=== PATIENT | male | born 1970 | race Caucasian/White ===

== ENCOUNTER → 2017-06-12 | Outpatient (CLI) | payer OTHER ==
[~2017-06-12] MED LIST: AMOX500 PO; BP PILL; Bactrim Ds Tab1 EACH PO; CEPH500 PO; CODGUAEL PO; Naprosyn500 MG PO; PENVK500 PO; Percocet 5-3251 EACH PO; SULTRIDS PO; WARF5
[2017-06-12 19:03] LABS: International Normalized Ratio 0.98; Prothrombin Time Results 10.2 Sec (9.7-11.5)
== END | disposition home or self-care (01) ==
LOC: LAB 15:55
PROVIDERS: Physician Assistant
DX: Z79.01 Long term (current) use of anticoagulants (principal); Z51.81 Encounter for therapeutic drug level monitoring
CPT/HCPCS: 85610

== ENCOUNTER 2019-02-05 15:02 | Emergency (ER) | payer OTHER ==
[~2019-02-05] VITALS: Ht 180.3 cm; Wt 108.9 kg
[2019-02-05] MEDS ORDERED: [UNRECOGNIZED DRUG - REMARK] (20:24)
[2019-02-05 20:48] LABS: BASOPHILS ABSOLUTE AUTO 0.03 K/mm3 (0.00-0.23); BASOPHILS PERCENT AUTO 1 % (0-2); EOSINOPHILS ABSOLUTE AUTO 0.09 K/mm3 (0.00-0.68); EOSINOPHILS PERCENT AUTO 2 % (0-6); Hematocrit 32.3 % (37.0-53.0); Hemoglobin 10.2 g/dL (13.5-17.5); IMMATURE GRAN ABSOLUTE AUTO 0.02 K/mm3 (0.00-0.10); IMMATURE GRAN PERCENT AUTO 0 % (0-1); LYMPHOCYTES ABSOLUTE AUTO 1.19 K/mm3 (0.84-5.20); LYMPHOCYTES PERCENT AUTO 20 % (21-46); MONOCYTES ABSOLUTE AUTO 0.42 K/mm3 (0.16-1.47); MONOCYTES PERCENT AUTO 7 % (4-13); Mean Corpuscular HGB 27.3 pg (26.0-34.0); Mean Corpuscular HGB Conc 31.6 g/dL (31.5-36.5); Mean Corpuscular Volume 86 fL (80-100); Mean Platelet Volume 9.1 fL (9.1-12.4); NEUTROPHILS ABSOLUTE AUTO 4.12 K/mm3 (1.96-9.15); NEUTROPHILS PERCENT AUTO 70 % (41-73); Platelet Count 291 K/mm3 (150-400); RDW Coefficient Variation 14.3 % (11.7-14.2); RDW Standard Deviation 44.8 fL (35.1-46.3); Red Blood Cell Count 3.74 M/mm3 (4.30-5.90); White Blood Cell Count 5.87 K/mm3 (4.00-11.30)
[2019-02-05 21:08] LABS: Alanine Aminotransfer (ALT/SGP 47 U/L (12-78); Albumin, Blood 3.1 g/dL (3.4-5.0); Albumin/Globulin Ratio 0.9 (0.8-1.8); Alk Phos 46 U/L (50-136); Anion Gap 5 mmol/L (6-16); Aspartate Aminotrans (AST/SGOT 23 U/L (12-37); Bilirubin, Total 0.6 mg/dL (0.1-1.0); Blood Urea Nitrogen 17 mg/dL (8-24); Bun/Creatinine Ratio 17.6 (12.0-20.0); CO2, Blood 28 mmol/L (21-32); Chloride, Blood 108 mmol/L (98-108); Creatinine, Blood 0.97 mg/dL (0.60-1.20); Globulin, Blood 3.4 g/dL (2.2-4.0); Glomerular Filtration Rate >60 (60-); Glucose, Blood 126 mg/dL (70-99); Potassium, Blood 4.3 mmol/L (3.5-5.5); Sodium, Blood 141 mmol/L (136-145); Total Protein, Blood 6.5 g/dL (6.4-8.2)
[2019-02-05] MEDS ORDERED: Lasix20 MG PO (22:31)
== END 2019-02-05 23:26 | disposition home or self-care (01) ==
LOC: ER 15:02
PROVIDERS: Physician Assistant
DX: I50.9 Heart failure, unspecified (principal); R74.8 Abnormal levels of other serum enzymes; R60.0 Localized edema
CPT/HCPCS: 71046; 80053; 83880; 85025; 93005; 93010; 96374; 99285-25; J1940

== ENCOUNTER → 2019-02-26 | Outpatient (CLI) | payer OTHER ==
[~2019-02-26] MED LIST changes: +Lasix20 MG PO; +[UNRECOGNIZED DRUG - REMARK]
[2019-02-26 16:49] LABS: International Normalized Ratio 0.94
== END | disposition home or self-care (01) ==
LOC: LAB 11:50 → LAB SHORT 11:50
PROVIDERS: Physician Assistant
DX: Z95.4 Presence of other heart-valve replacement (principal)
CPT/HCPCS: 85610

== ENCOUNTER 2019-05-15 16:18 | Inpatient (IN) | payer OTHER ==
[~2019-05-15] VITALS: Ht 180.3 cm; Wt 118.8 kg
[2019-05-15] MEDS ORDERED: WARF5 PO (16:57)
[2019-05-15 17:07] LABS: BASOPHILS ABSOLUTE AUTO 0.01 K/mm3 (0.00-0.23); BASOPHILS PERCENT AUTO 0 % (0-2); EOSINOPHILS PERCENT AUTO 0 % (0-6); Hematocrit 32.4 % (37.0-53.0); Hemoglobin 10.7 g/dL (13.5-17.5); IMMATURE GRAN ABSOLUTE AUTO 0.03 K/mm3 (0.00-0.10); IMMATURE GRAN PERCENT AUTO 0 % (0-1); LYMPHOCYTES ABSOLUTE AUTO 0.34 K/mm3 (0.84-5.20); LYMPHOCYTES PERCENT AUTO 3 % (21-46); MONOCYTES ABSOLUTE AUTO 0.42 K/mm3 (0.16-1.47); MONOCYTES PERCENT AUTO 4 % (4-13); Mean Corpuscular HGB 27.3 pg (26.0-34.0); Mean Corpuscular Volume 83 fL (80-100); Mean Platelet Volume 9.9 fL (9.1-12.4); NEUTROPHILS ABSOLUTE AUTO 9.13 K/mm3 (1.96-9.15); NEUTROPHILS PERCENT AUTO 92 % (41-73); Platelet Count 276 K/mm3 (150-400); RDW Coefficient Variation 14.7 % (11.7-14.2); RDW Standard Deviation 44.5 fL (35.1-46.3); Red Blood Cell Count 3.92 M/mm3 (4.30-5.90); White Blood Cell Count 9.93 K/mm3 (4.00-11.30)
[2019-05-15] MEDS ORDERED: Potassium Chlo20 ME1 PO (17:17)
[2019-05-15] MEDS ORDERED: ATORVASTATIN CA40 MG PO (17:17)
[2019-05-15] MEDS ORDERED: FUROSEMIDE40 MG PO (17:18)
[2019-05-15] MEDS ORDERED: FEROSUL325 M1 PO (17:19)
[2019-05-15 17:23] LABS: International Normalized Ratio 1.58; Prothrombin Time Results 16.5 Sec (9.7-11.5)
[2019-05-15 17:26] LABS: Alanine Aminotransfer (ALT/SGP 35 U/L (12-78); Anion Gap 4 mmol/L (6-16); Aspartate Aminotrans (AST/SGOT 23 U/L (12-37); Blood Urea Nitrogen 22 mg/dL (8-24); CO2, Blood 25 mmol/L (21-32); Calcium, Blood 8.5 mg/dL (8.5-10.1); Chloride, Blood 106 mmol/L (98-108); Glucose, Blood 92 mg/dL (70-99); Potassium, Blood 3.6 mmol/L (3.5-5.5); Sodium, Blood 135 mmol/L (136-145)
[2019-05-15 17:34] LABS: Albumin/Globulin Ratio 1.1 (0.8-1.8); Alk Phos 45 U/L (50-136); Bilirubin, Total 0.9 mg/dL (0.1-1.0); Bun/Creatinine Ratio 19.3 (12.0-20.0); Creatinine, Blood 1.14 mg/dL (0.60-1.20); Globulin, Blood 3.5 g/dL (2.2-4.0); Glomerular Filtration Rate >60 (60-); Total Protein, Blood 7.5 g/dL (6.4-8.2)
[2019-05-15 17:42] LABS: Influenza A Negative (NEGATIVE); Influenza B Negative (NEGATIVE)
--- NOTE | 2019-05-16 03:42 | NUR ---
PROVIDER CALLED REGARDING PUREE DIET. PT HAS NO ISSUES RELATED TO SWALLOWING OR ASPIRATION RISK. DR LEVY ADVISED TO HAVE DIET ASSESSED BY DAY PROVIDER AND CONTINUE PUREED DIET FOR NOW.
--- NOTE | 2019-05-16 04:03 | NUR ---
SHIFT SUMMARY PT ARRIVED TO UNIT BY BED ON ROOM AIR. ABX INFUSING AT TIME OF ARRIVAL. PT A/O X 4. PT ORIENTED TO ROOM. FAMILY AT BEDSIDE FOR FIRST PORTION OF SHIFT. PT PUT ON HIGH FLOW O2 BY RT D/T VEWS SCORE 5. PT RESPONDED WELL TO MEDICATION ADMINSTRATIONS. CHARGE NURSE NOTIFIED/CONSULTED REGARDING STATUS OF PT UPON ARRIVAL. PT STABLE FOR REMAINING PORTION OF SHIFT. ABLE TO DECREASE THE O2 NC TO 3 L AND MAINTAINS SATS IN MID 90S. PAIN MANAGED WITH PRN MEDICATIONS AND REPORTED RESOLVING BY PT. LN TO CONTINUE TO MONITOR.
[2019-05-16 05:07] LABS: Hematocrit 32.4 % (37.0-53.0); Hemoglobin 10.4 g/dL (13.5-17.5); Mean Corpuscular HGB 26.9 pg (26.0-34.0); Mean Corpuscular HGB Conc 32.1 g/dL (31.5-36.5); Mean Corpuscular Volume 84 fL (80-100); Mean Platelet Volume 9.9 fL (9.1-12.4); Platelet Count 240 K/mm3 (150-400); RDW Standard Deviation 45.4 fL (35.1-46.3); Red Blood Cell Count 3.86 M/mm3 (4.30-5.90); White Blood Cell Count 13.04 K/mm3 (4.00-11.30)
[2019-05-16 05:21] LABS: International Normalized Ratio 2.06
[2019-05-16 05:41] LABS: Prothrombin Time Results 21.2 Sec (9.7-11.5)
[2019-05-16 05:51] LABS: Anion Gap 7 mmol/L (6-16); Blood Urea Nitrogen 23 mg/dL (8-24); CO2, Blood 28 mmol/L (21-32); Calcium, Blood 7.8 mg/dL (8.5-10.1); Chloride, Blood 103 mmol/L (98-108); Creatinine, Blood 1.28 mg/dL (0.60-1.20); Glomerular Filtration Rate >60 (60-); Glucose, Blood 100 mg/dL (70-99); Magnesium, Blood 1.7 mg/dL (1.6-2.4); Potassium, Blood 3.6 mmol/L (3.5-5.5); Sodium, Blood 138 mmol/L (136-145)
[2019-05-16 05:54] LABS: BAND PERCENT MAN 21 % (0-8); BASOPHILS PERCENT MAN 0 % (0-2); EOSINOPHILS PERCENT MAN 0 % (0-6); LYMPHOCYTES ABSOLUTE MAN 1.04 K/mm3 (0.84-5.20); LYMPHOCYTES PERCENT MAN 8 % (21-46); METAMYELOCYTE ABSOLUTE MAN 0.13 K/mm3 (0.00-0.00); METAMYELOCYTE PERCENT MAN 1 % (0-0); MONOCYTES ABSOLUTE MAN 0.13 K/mm3 (0.16-1.47); MONOCYTES PERCENT MAN 1 % (4-13); NEUTROPHILS ABSOLUTE MAN 11.73 K/mm3 (1.96-9.15); SEG NEUTROPHILS PERCENT MAN 69 % (41-73); TOTAL CELLS COUNTED 100
--- NOTE | 2019-05-16 19:26 | NUR ---
SHIFT SUMMARY- PT ALERT AND ORIENTED INDEPENDENT IN THE ROOM. PT HAD A FULL SHOWER TODAY. PT AMBULATED WITH THE SPECIALIST MANAGERS IN THE HALLS TODAY WELL. PT HAS AN EXTENSIVE CARDIAC Hx. C/O RIGHT CHEST PAIN EARLIER IN THE SHIFT MEDICATED PER EMAR. PT IV SL WITH THE EXCEPTION OF IV ABX. SBP HAS REMAINED OVER 100 T/O THE DAY. PT STATES N/T IN BILATERAL FEET AT BASELINE. NO OTHER C/O PAIN. LUNG SOUNDS DIMINISHED T/O. PT REMOVED O2 AFTER GOING TO THE BATHROOM. AFTER 30 MINUTES ON ROOM AIR O2 SATS WERE 93% WITH A HR OF 91. PT STATED HE FEELS LIKE HE IS BREATHING BETTER. PASSED ON IN REPORT TO NIGHT CHIKA LAZARO.
[2019-05-17 05:00] LABS: BASOPHILS ABSOLUTE AUTO 0.01 K/mm3 (0.00-0.23); BASOPHILS PERCENT AUTO 0 % (0-2); EOSINOPHILS ABSOLUTE AUTO 0.05 K/mm3 (0.00-0.68); EOSINOPHILS PERCENT AUTO 1 % (0-6); Hematocrit 31.1 % (37.0-53.0); Hemoglobin 10.1 g/dL (13.5-17.5); IMMATURE GRAN ABSOLUTE AUTO 0.04 K/mm3 (0.00-0.10); IMMATURE GRAN PERCENT AUTO 0 % (0-1); LYMPHOCYTES ABSOLUTE AUTO 0.99 K/mm3 (0.84-5.20); LYMPHOCYTES PERCENT AUTO 9 % (21-46); MONOCYTES ABSOLUTE AUTO 0.45 K/mm3 (0.16-1.47); MONOCYTES PERCENT AUTO 4 % (4-13); Mean Corpuscular HGB Conc 32.5 g/dL (31.5-36.5); Mean Corpuscular Volume 83 fL (80-100); Mean Platelet Volume 10.1 fL (9.1-12.4); NEUTROPHILS ABSOLUTE AUTO 9.02 K/mm3 (1.96-9.15); NEUTROPHILS PERCENT AUTO 85 % (41-73); Platelet Count 237 K/mm3 (150-400); RDW Coefficient Variation 15.1 % (11.7-14.2); RDW Standard Deviation 45.7 fL (35.1-46.3); Red Blood Cell Count 3.74 M/mm3 (4.30-5.90); White Blood Cell Count 10.56 K/mm3 (4.00-11.30)
[2019-05-17 05:19] LABS: Anion Gap 4 mmol/L (6-16); Blood Urea Nitrogen 19 mg/dL (8-24); Bun/Creatinine Ratio 20.2 (12.0-20.0); CO2, Blood 27 mmol/L (21-32); Calcium, Blood 8.4 mg/dL (8.5-10.1); Chloride, Blood 109 mmol/L (98-108); Creatinine, Blood 0.94 mg/dL (0.60-1.20); Glomerular Filtration Rate >60 (60-); Glucose, Blood 97 mg/dL (70-99); Potassium, Blood 3.6 mmol/L (3.5-5.5); Sodium, Blood 140 mmol/L (136-145)
[2019-05-17 05:21] LABS: International Normalized Ratio 1.7; Prothrombin Time Results 17.7 Sec (9.7-11.5)
--- NOTE | 2019-05-17 07:32 | NUR ---
SHIFT SUMMARY PATIENT ALERT AND ORIENTED. ABLE TO SLEEP WELL MOST OF THE NIGHT. IV PATENT AND FLUSHED. BED IN LOWEST POSITION WITH WHEELS LOCKED. CALL LIGHT AND BELONGINGS WITHIN REACH. REPORT GIVEN TO ONCOMING CHIKA.
--- NOTE | 2019-05-17 17:40 | NUR ---
PT SBP HAS BEEN RUNNING LOW, CALLED DR MACKEY TO CONFIRM NEW ORDER FOR METOPROLOL AND LISINOPRIL. PT HAS AN ARTIFICIAL HEART VALVE AND Hx OF ANURISIM REPAIR WELL OTHER CARDIAC Hx. ORDER RECIEVED TO HOLD FOR SBP LESS THAN 90.
--- NOTE | 2019-05-17 19:50 | NUR ---
SHIFT SUMMARY- PT HAS HAD NO ACUTE CHANGE T/O THE SHIFT. PT MEDICATED FOR PAIN ONCE WITH TYLENOL FOR A HEADACHE. PT IS ALERT, ORIENTED AND INDEPENDENT IN THE ROOM. PT SWEATS PROFUSELY (AT BASELINE PER PT) WHEN HE SLEEPS, THIS REQUIRES STAFF TO CHANGE THE LINNENS BUT IT ALSO CAUSES HIS IV TAPE TO NO LONGER STICK. PT HAS A LOT OF HAIR ON HIS ARM AND PLAN WAS TO TRIM THE HAIR AROUND THE IV SITE AND TRY TO USE SKIN PREP TO AID IN ADHEREING THE WINDOW IV DRESSING. PT PLANS TO DISCHARGE HOME TOMORROW AND WOULD LIKE TO NOT HAVE TO CHANGE IV SITES. IV FLUSHES WELL AND IS SL. PASSED ON TO NIGHT RN IN BEDSIDE REPORT.
--- NOTE | 2019-05-18 05:14 | NUR ---
SHIFT SUMMARY PT SLEPT A FAIR AMOUNT THIS EVENING, CONSIDERING THAT PT REPORTED THAT HE HAD SLEPT MOST OF THE DAY WELL. WAS AWAKE FOR PERIODS THROUGHOUT THE NIGHT BUT SLEPT WELL OFF AND ON. PT REPORTED SOME PAIN IN BILATERAL HANDS R/T HX OF CARPAL TUNNEL. MEDICATED X 1 W/ 650 MG TYLENOL. DRY OCCASSIONAL NON PRODUCTIVE COUGH NOTED. PT REMAINED ON RA W/ O2 SATS IN THE MID 90'S. VITAL SIGNS STABLE. NO ACUTE EVENTS TONIGHT. WILL CONTINUE TO MONITOR AND REPORT TO DAY RN.
[2019-05-18 05:15] LABS: BASOPHILS ABSOLUTE AUTO 0.02 K/mm3 (0.00-0.23); BASOPHILS PERCENT AUTO 0 % (0-2); EOSINOPHILS ABSOLUTE AUTO 0.04 K/mm3 (0.00-0.68); EOSINOPHILS PERCENT AUTO 0 % (0-6); Hematocrit 31.7 % (37.0-53.0); IMMATURE GRAN ABSOLUTE AUTO 0.05 K/mm3 (0.00-0.10); IMMATURE GRAN PERCENT AUTO 1 % (0-1); LYMPHOCYTES ABSOLUTE AUTO 1.24 K/mm3 (0.84-5.20); LYMPHOCYTES PERCENT AUTO 14 % (21-46); MONOCYTES ABSOLUTE AUTO 0.42 K/mm3 (0.16-1.47); MONOCYTES PERCENT AUTO 5 % (4-13); Mean Corpuscular HGB 26.7 pg (26.0-34.0); Mean Corpuscular HGB Conc 31.5 g/dL (31.5-36.5); Mean Corpuscular Volume 85 fL (80-100); Mean Platelet Volume 10.3 fL (9.1-12.4); NEUTROPHILS PERCENT AUTO 81 % (41-73); Platelet Count 262 K/mm3 (150-400); RDW Coefficient Variation 14.9 % (11.7-14.2); RDW Standard Deviation 45.9 fL (35.1-46.3); Red Blood Cell Count 3.75 M/mm3 (4.30-5.90); White Blood Cell Count 9.07 K/mm3 (4.00-11.30)
[2019-05-18 05:28] LABS: International Normalized Ratio 1.65; Prothrombin Time Results 17.2 Sec (9.7-11.5)
[2019-05-18 05:49] LABS: Anion Gap 6 mmol/L (6-16); Blood Urea Nitrogen 16 mg/dL (8-24); Bun/Creatinine Ratio 17.6 (12.0-20.0); CO2, Blood 26 mmol/L (21-32); Calcium, Blood 8.4 mg/dL (8.5-10.1); Chloride, Blood 109 mmol/L (98-108); Creatinine, Blood 0.91 mg/dL (0.60-1.20); Glomerular Filtration Rate >60 (60-); Glucose, Blood 93 mg/dL (70-99); Potassium, Blood 3.9 mmol/L (3.5-5.5); Sodium, Blood 141 mmol/L (136-145)
[2019-05-18] MEDS ORDERED: Lisinopril2.5 MG PO (10:44)
[2019-05-18] MEDS ORDERED: ACET325 PO (10:44)
[2019-05-18] MEDS ORDERED: Augmentin 875-1 EACH PO (10:45)
[2019-05-18] MEDS ORDERED: METO25ER PO (10:45)
--- NOTE | 2019-05-18 14:17 | NUR ---
PT DC'D 1100 WITH DC INSTRUCTIONS- WILL [facility] CODER RX FROM [facility] BEFORE 100 TODAY. IV DC'D. PT AMBULATED OUT WITH MOM AT SIDE, PT DECLINED WHEEL CHAIR. IS STRONG AND ABLE TO AMBULATE, NO SOB. PRIVATE CAR TO HOME
== END 2019-05-18 11:06 | disposition home or self-care (01) | DRG 871 ==
LOC: ER 16:18 → MEDS 18:25
PROVIDERS: Emergency Medicine; Internal Medicine; Physician Assistant; ADMIT Hospitalist
DX: A40.3 Sepsis due to Streptococcus pneumoniae (principal); J13 Pneumonia due to Streptococcus pneumoniae; R04.2 Hemoptysis; I50.22 Chronic systolic (congestive) heart failure; Z95.2 Presence of prosthetic heart valve; D64.9 Anemia, unspecified; Z79.01 Long term (current) use of anticoagulants
CPT/HCPCS: 36415; 71046; 80048; 80053; 83605; 83735; 83880; 85025; 85610; 87040; 87070; 87186; 87205; 87804; 93005; 93010; 93306; 94760; 96365; 96366; 96375; 99285-25; A9270; A9270-GY; J0456; J0696; J1650; J1940; J7050; J7512

== ENCOUNTER 2020-06-01 21:30 | Inpatient (IN) | payer OTHER ==
[~2020-06-01] VITALS: Ht 180.3 cm; Wt 128.2 kg
[~2020-06-01 21:30] MED LIST changes: +ACET325 PO; +ATORVASTATIN CA40 MG PO; +Augmentin 875-1 EACH PO; +CARV3.125 PO; +DOK100 MG PO; +ENOX120I SC; +FEROSUL325 M1 PO; +FUROSEMIDE40 MG PO; +LANOXIN125 MCG PO; +Lisinopril2.5 MG PO; +METO25ER PO; +PERIDEX15 ML MM; +POTCHL20ER PO; +Penicillin V P500 MG PO; +Potassium Chlo20 ME1 PO; +SENN187 PO; +WARF5 PO
[2020-06-01 22:07] LABS: BASOPHILS ABSOLUTE AUTO 0.01 K/mm3 (0.00-0.23); BASOPHILS PERCENT AUTO 0 % (0-2); EOSINOPHILS ABSOLUTE AUTO 0.08 K/mm3 (0.00-0.68); EOSINOPHILS PERCENT AUTO 2 % (0-6); Hematocrit 38.1 % (37.0-53.0); Hemoglobin 12.3 g/dL (13.5-17.5); IMMATURE GRAN ABSOLUTE AUTO 0.03 K/mm3 (0.00-0.10); IMMATURE GRAN PERCENT AUTO 1 % (0-1); LYMPHOCYTES ABSOLUTE AUTO 1.02 K/mm3 (0.84-5.20); LYMPHOCYTES PERCENT AUTO 20 % (21-46); MONOCYTES ABSOLUTE AUTO 0.48 K/mm3 (0.16-1.47); MONOCYTES PERCENT AUTO 9 % (4-13); Mean Corpuscular HGB 29.5 pg (26.0-34.0); Mean Corpuscular HGB Conc 32.3 g/dL (31.5-36.5); Mean Corpuscular Volume 91 fL (80-100); Mean Platelet Volume 9.6 fL (9.1-12.4); NEUTROPHILS ABSOLUTE AUTO 3.61 K/mm3 (1.96-9.15); NEUTROPHILS PERCENT AUTO 69 % (41-73); Platelet Count 242 K/mm3 (150-400); RDW Coefficient Variation 15.5 % (11.7-14.2); RDW Standard Deviation 51.8 fL (35.1-46.3); Red Blood Cell Count 4.17 M/mm3 (4.30-5.90); White Blood Cell Count 5.23 K/mm3 (4.00-11.30)
[2020-06-01 22:28] LABS: Alanine Aminotransfer (ALT/SGP 64 U/L (12-78); Albumin, Blood 3.4 g/dL (3.4-5.0); Alk Phos 47 U/L (50-136); Anion Gap 3 mmol/L (6-16); Aspartate Aminotrans (AST/SGOT 31 U/L (12-37); Bilirubin, Total 0.4 mg/dL (0.1-1.0); Blood Urea Nitrogen 29 mg/dL (8-24); Bun/Creatinine Ratio 30.1 (12.0-20.0); CO2, Blood 31 mmol/L (21-32); Calcium, Blood 8.9 mg/dL (8.5-10.1); Chloride, Blood 108 mmol/L (98-108); Creatinine, Blood 0.96 mg/dL (0.60-1.20); Globulin, Blood 3.4 g/dL (2.2-4.0); Glomerular Filtration Rate >60 (60-); Glucose, Blood 99 mg/dL (70-99); Potassium, Blood 4.6 mmol/L (3.5-5.5); Sodium, Blood 142 mmol/L (136-145); Total Protein, Blood 6.8 g/dL (6.4-8.2)
[2020-06-01 23:11] LABS: Prothrombin Time Results 30.2 Sec (9.7-11.5)
[2020-06-01 23:21] LABS: Digoxin (Lanoxin) 0.35 ug/mL (0.80-2.00)
[2020-06-02 08:09] LABS: BASOPHILS ABSOLUTE AUTO 0.02 K/mm3 (0.00-0.23); BASOPHILS PERCENT AUTO 0 % (0-2); EOSINOPHILS ABSOLUTE AUTO 0.08 K/mm3 (0.00-0.68); EOSINOPHILS PERCENT AUTO 2 % (0-6); Hematocrit 37.5 % (37.0-53.0); Hemoglobin 12.1 g/dL (13.5-17.5); IMMATURE GRAN ABSOLUTE AUTO 0.03 K/mm3 (0.00-0.10); IMMATURE GRAN PERCENT AUTO 1 % (0-1); LYMPHOCYTES ABSOLUTE AUTO 0.81 K/mm3 (0.84-5.20); LYMPHOCYTES PERCENT AUTO 16 % (21-46); MONOCYTES ABSOLUTE AUTO 0.47 K/mm3 (0.16-1.47); MONOCYTES PERCENT AUTO 9 % (4-13); Mean Corpuscular HGB 29.4 pg (26.0-34.0); Mean Corpuscular HGB Conc 32.3 g/dL (31.5-36.5); Mean Corpuscular Volume 91 fL (80-100); Mean Platelet Volume 9.8 fL (9.1-12.4); NEUTROPHILS PERCENT AUTO 73 % (41-73); Platelet Count 253 K/mm3 (150-400); RDW Coefficient Variation 15.5 % (11.7-14.2); RDW Standard Deviation 51.5 fL (35.1-46.3); Red Blood Cell Count 4.12 M/mm3 (4.30-5.90); White Blood Cell Count 5.21 K/mm3 (4.00-11.30)
[2020-06-02 08:22] LABS: International Normalized Ratio 2.99; Prothrombin Time Results 30.1 Sec (9.7-11.5)
[2020-06-02 08:28] LABS: Alanine Aminotransfer (ALT/SGP 60 U/L (12-78); Albumin, Blood 3.3 g/dL (3.4-5.0); Alk Phos 43 U/L (50-136); Anion Gap 4 mmol/L (6-16); Aspartate Aminotrans (AST/SGOT 28 U/L (12-37); Bilirubin, Total 0.5 mg/dL (0.1-1.0); Blood Urea Nitrogen 26 mg/dL (8-24); CO2, Blood 30 mmol/L (21-32); Calcium, Blood 8.8 mg/dL (8.5-10.1); Chloride, Blood 107 mmol/L (98-108); Globulin, Blood 3.2 g/dL (2.2-4.0); Glomerular Filtration Rate >60 (60-); Glucose, Blood 111 mg/dL (70-99); Potassium, Blood 4.6 mmol/L (3.5-5.5); Sodium, Blood 141 mmol/L (136-145); Total Protein, Blood 6.5 g/dL (6.4-8.2)
[2020-06-02] MEDS ORDERED: FURO40 PO (10:36)
[2020-06-02] MEDS ORDERED: ALBU90OI INH (10:37)
--- NOTE | 2020-06-02 17:57 | NUR ---
SHIFT SUMMARY PT ARRIVED DURING SHIFT FROM ED. PT ALERT AND ORIENTED X 4. HR STABLE. A-FLUTTER ON MONITOR. NO CP OR PRESSURE REPORTED. PT IND IN ROOM. HR STABLE. BP STABLE. OXYGEN SATURATION MAINTAINED ABOVE 92% ON RA. WILL CONTINUE TO MONITOR UNTIL REPORT GIVEN TO MARNI FARR.
[2020-06-03 04:46] LABS: BASOPHILS ABSOLUTE AUTO 0.03 K/mm3 (0.00-0.23); BASOPHILS PERCENT AUTO 1 % (0-2); EOSINOPHILS ABSOLUTE AUTO 0.08 K/mm3 (0.00-0.68); EOSINOPHILS PERCENT AUTO 2 % (0-6); Hematocrit 36.9 % (37.0-53.0); Hemoglobin 12.3 g/dL (13.5-17.5); IMMATURE GRAN ABSOLUTE AUTO 0.03 K/mm3 (0.00-0.10); IMMATURE GRAN PERCENT AUTO 1 % (0-1); LYMPHOCYTES ABSOLUTE AUTO 1.13 K/mm3 (0.84-5.20); LYMPHOCYTES PERCENT AUTO 23 % (21-46); MONOCYTES ABSOLUTE AUTO 0.48 K/mm3 (0.16-1.47); MONOCYTES PERCENT AUTO 10 % (4-13); Mean Corpuscular HGB 30.4 pg (26.0-34.0); Mean Corpuscular HGB Conc 33.3 g/dL (31.5-36.5); Mean Corpuscular Volume 91 fL (80-100); NEUTROPHILS ABSOLUTE AUTO 3.22 K/mm3 (1.96-9.15); NEUTROPHILS PERCENT AUTO 65 % (41-73); Platelet Count 240 K/mm3 (150-400); RDW Standard Deviation 50.2 fL (35.1-46.3); Red Blood Cell Count 4.04 M/mm3 (4.30-5.90); White Blood Cell Count 4.97 K/mm3 (4.00-11.30)
[2020-06-03 05:00] LABS: International Normalized Ratio 3.07; Prothrombin Time Results 30.8 Sec (9.7-11.5)
[2020-06-03 05:02] LABS: Anion Gap 5 mmol/L (6-16); Blood Urea Nitrogen 24 mg/dL (8-24); Bun/Creatinine Ratio 26.2 (12.0-20.0); CO2, Blood 30 mmol/L (21-32); Calcium, Blood 8.7 mg/dL (8.5-10.1); Chloride, Blood 106 mmol/L (98-108); Creatinine, Blood 0.92 mg/dL (0.60-1.20); Glomerular Filtration Rate >60 (60-); Glucose, Blood 128 mg/dL (70-99); Phosphorus, Blood 4.2 mg/dL (2.5-4.9); Potassium, Blood 4.3 mmol/L (3.5-5.5); Sodium, Blood 141 mmol/L (136-145)
--- NOTE | 2020-06-03 05:36 | NUR ---
SHIFT SUMMARY NO ACUTE CHANGES THIS SHIFT. AXO. REMAINS AFLUTTER, RANGING FROM 90-120'S. BP STABLE. ON RA. ASYMPTOMATIC TO HR. DENYING CP/PRESSURE THIS SHIFT. PT HAS BEEN RESTING FOR MAJORITY OF SHIFT. DR CALLED REGARDING HR AT BEGINNIG OF SHIFT, IV LOPRESSOR ORDERED, SOMEWHAT EFFECTIVE AT DESIRED EFFECT. HR USUALLY REMAINS AT 120-124 NOW INSTEAD OF UPPER 130'S. OTHERWISE, PT INDEPENDENT IN ROOM. WILL CONTINUE TO MONITOR UNTIUL SHIFT CHANGE.
--- NOTE | 2020-06-03 17:42 | NUR ---
SHIFT SUMMARY; A/A/OX4 DURING SHIFT. SLEEPING THROUGHOUT DAY. HR 115-125 AFLUTTER. EVALUATED BY CARDIOLOGY TODAY. NPO AFTER MIDNIGHT FOR MADONNA AND CARDIOVERSION TOMORROW. NO REPOSITIONS SELF IN BED NEEDED, INDEPENDANT IN ROOM. WILL CONTINUE TO MONITOR AND TREAT UNTIL END OF SHIFT.
[2020-06-04 04:11] LABS: BASOPHILS ABSOLUTE AUTO 0.02 K/mm3 (0.00-0.23); BASOPHILS PERCENT AUTO 0 % (0-2); EOSINOPHILS ABSOLUTE AUTO 0.08 K/mm3 (0.00-0.68); EOSINOPHILS PERCENT AUTO 2 % (0-6); Hematocrit 38.4 % (37.0-53.0); Hemoglobin 12.8 g/dL (13.5-17.5); IMMATURE GRAN ABSOLUTE AUTO 0.05 K/mm3 (0.00-0.10); IMMATURE GRAN PERCENT AUTO 1 % (0-1); LYMPHOCYTES ABSOLUTE AUTO 1.34 K/mm3 (0.84-5.20); LYMPHOCYTES PERCENT AUTO 27 % (21-46); MONOCYTES PERCENT AUTO 10 % (4-13); Mean Corpuscular HGB 29.9 pg (26.0-34.0); Mean Corpuscular HGB Conc 33.3 g/dL (31.5-36.5); Mean Corpuscular Volume 90 fL (80-100); Mean Platelet Volume 9.3 fL (9.1-12.4); NEUTROPHILS PERCENT AUTO 60 % (41-73); Platelet Count 238 K/mm3 (150-400); RDW Coefficient Variation 14.9 % (11.7-14.2); RDW Standard Deviation 48.5 fL (35.1-46.3); Red Blood Cell Count 4.28 M/mm3 (4.30-5.90); White Blood Cell Count 4.99 K/mm3 (4.00-11.30)
[2020-06-04 04:26] LABS: International Normalized Ratio 3.13; Prothrombin Time Results 31.4 Sec (9.7-11.5)
[2020-06-04 04:36] LABS: Albumin, Blood 3.2 g/dL (3.4-5.0); Anion Gap 3 mmol/L (6-16); Blood Urea Nitrogen 25 mg/dL (8-24); Bun/Creatinine Ratio 25.1 (12.0-20.0); CO2, Blood 31 mmol/L (21-32); Calcium, Blood 9.1 mg/dL (8.5-10.1); Chloride, Blood 107 mmol/L (98-108); Glomerular Filtration Rate >60 (60-); Glucose, Blood 113 mg/dL (70-99); Phosphorus, Blood 3.9 mg/dL (2.5-4.9); Potassium, Blood 4.4 mmol/L (3.5-5.5); Sodium, Blood 141 mmol/L (136-145); Thyroid Stimulating Hormone 0.391 uIU/mL (0.360-4.800)
--- NOTE | 2020-06-04 04:52 | NUR ---
SHIFT SUMMARY NO ACUTE CHANGES THIS SHIFT. REMAINS AXO. IN AFLUTTER 120'S DESPITE PO MEDS AND IV LOPRESSOR PUSH X1. PT ASYMPTOMATIC. TOLERATING CPAP TONIGHT FOR SLEEP APNEA. OTHERWISE ON RA, NPO SINCE MIDNIGHT. PT RESTING IN ROOM QUIETELY. HAS BEEN USING CALL LIGHT APPROPRIATELY. WILL CONTINUE TO MONITOR UNTIL SHIFT CHANGE.
--- NOTE | 2020-06-04 05:20 | NUR ---
EDVIN BURGESS CALLED, UPDATED ON PT'S CONDITION AND UPCOMING MADONNA CARDIVERSION. CELL PHONE # [phone] / HOME PHONE [phone]
[2020-06-04 08:13] LABS: Influenza A, PCR NEGATIVE (NEGATIVE); Influenza B, PCR NEGATIVE (NEGATIVE); Resp Syncytial Virus, PCR NEGATIVE (NEGATIVE); SARS-Cov-2 (COVID-19) PCR, MMC NEGATIVE (NEGATIVE)
[2020-06-04 09:38] LABS: U Amphetamine Screen DETECTED; U Barbituate Screen Not Detected; U Benzodiazapine Screen Not Detected; U Buprenorphine Screen Not Detected; U Cannabinoids Screen Not Detected; U Cocaine Screen Not Detected; U Methadone Screen Not Detected; U Methamphetamine Screen DETECTED; U Opiates Screen Not Detected; U Oxycodone Screen Not Detected; U Phencyclidine Screen Not Detected; U Propoxyphene Screen Not Detected
--- NOTE | 2020-06-04 13:11 | NUR ---
PT RETURNED TO ROOM FROM PROCEDURE, A&0 X 4, SEE VITAL SIGNS. NO NEEDS IDENTIFIED AT THIS TIME.
--- NOTE | 2020-06-04 13:11 | NUR ---
PT RETURNED TO PCU VIA BED, CONDITION STABLE. REPORT TO CHIKA LEIVA; ALL QUESTIONS ANSWERED.
[2020-06-04] MEDS ORDERED: ENTRESTO 24 MG1 EAC2 PO (16:17)
[2020-06-04] MEDS ORDERED: ALDACTONE25 MG PO (16:18)
== END 2020-06-04 16:45 | disposition home or self-care (01) | DRG 308 ==
LOC: ER 21:30 → PCU 21:31 → ERHOLD 21:31 → PCU 06-02 10:24
PROVIDERS: Emergency Medicine; Family Medicine; Internal Medicine Cardiovascular Disease; ADMIT Internal Medicine
PROC: 5A09357 Assistance with Respiratory Ventilation, Less than 24 Consecutive Hours, Continuous Positive Airway Pressure (ICD-10-PCS; principal; 2020-06-02)
PROC: B3101ZZ Fluoroscopy of Thoracic Aorta using Low Osmolar Contrast (ICD-10-PCS; 2020-06-03)
PROC: 5A2204Z Restoration of Cardiac Rhythm, Single (ICD-10-PCS; 2020-06-04)
DX: I48.91 Unspecified atrial fibrillation (principal); I50.43 Acute on chronic combined systolic (congestive) and diastolic (congestive) heart failure; Z68.41 Body mass index [BMI] 40.0-44.9, adult; I11.0 Hypertensive heart disease with heart failure; I48.92 Unspecified atrial flutter; I35.0 Nonrheumatic aortic (valve) stenosis; D63.1 Anemia in chronic kidney disease; E66.01 Morbid (severe) obesity due to excess calories; E78.5 Hyperlipidemia, unspecified; G47.33 Obstructive sleep apnea (adult) (pediatric); F43.10 Post-traumatic stress disorder, unspecified; Z79.899 Other long term (current) drug therapy; Z79.01 Long term (current) use of anticoagulants
CPT/HCPCS: 0241U; 36415; 71045; 80053; 80069; 80162; 83880; 84443; 84484; 85025; 85610; 92960; 93005; 93010; 93312; 93325; 94660; 94762; 96374; 96375; 96376; 99285-25; A9270; C8929; G0378; J1160; J1940; J2704; J7030; Q9957

== ENCOUNTER 2020-11-27 15:34 | Emergency (ER) | payer OTHER ==
[~2020-11-27] VITALS: Ht 185.4 cm; Wt 134.7 kg
[~2020-11-27 15:34] MED LIST changes: -Inderal 20 mg T20 MG PO; -LISI5 PO
[2020-11-27] MEDS ORDERED: LISI5 PO (16:04)
[2020-11-27] MEDS ORDERED: Inderal 20 mg T20 MG PO (16:05)
== END 2020-11-27 20:00 | disposition home or self-care (01) ==
LOC: ER 15:34
DX: U07.1 COVID-19 (principal); I50.42 Chronic combined systolic (congestive) and diastolic (congestive) heart failure; D64.9 Anemia, unspecified; Z79.899 Other long term (current) drug therapy; Z79.01 Long term (current) use of anticoagulants
CPT/HCPCS: 71260; 93005; 93010; 99284-25; Q9967

== ENCOUNTER → 2020-11-27 | Outpatient (CLI) | payer OTHER ==
[~2020-11-27] MED LIST changes: +ALBU90OI INH; +ALDACTONE25 MG PO; +ENTRESTO 24 MG1 EAC2 PO; +FURO40 PO; +Inderal 20 mg T20 MG PO; +LISI5 PO
== END | disposition home or self-care (01) ==
LOC: LAB 14:17 → LAB SHORT 14:17
DX: R07.9 Chest pain, unspecified (principal)
CPT/HCPCS: 84484; 85379

== ENCOUNTER 2021-07-06 17:06 | Inpatient (IN) | payer OTHER ==
[~2021-07-06] VITALS: Ht 180.3 cm; Wt 132.6 kg
[~2021-07-06 17:06] MED LIST changes: +Inderal 20 mg T20 MG PO; +LISI5 PO
[2021-07-06 17:41] LABS: BASOPHILS ABSOLUTE AUTO 0.03 K/mm3 (0.00-0.23); BASOPHILS PERCENT AUTO 1 % (0-2); EOSINOPHILS PERCENT AUTO 2 % (0-6); Hematocrit 35.3 % (37.0-53.0); Hemoglobin 10.6 g/dL (13.5-17.5); IMMATURE GRAN ABSOLUTE AUTO 0.04 K/mm3 (0.00-0.10); IMMATURE GRAN PERCENT AUTO 1 % (0-1); LYMPHOCYTES ABSOLUTE AUTO 0.71 K/mm3 (0.84-5.20); LYMPHOCYTES PERCENT AUTO 12 % (21-46); MONOCYTES ABSOLUTE AUTO 0.45 K/mm3 (0.16-1.47); MONOCYTES PERCENT AUTO 8 % (4-13); Mean Corpuscular HGB 24.4 pg (26.0-34.0); Mean Corpuscular Volume 81 fL (80-100); NEUTROPHILS ABSOLUTE AUTO 4.46 K/mm3 (1.96-9.15); NEUTROPHILS PERCENT AUTO 77 % (41-73); Platelet Count 338 K/mm3 (150-400); RDW Coefficient Variation 17.2 % (11.7-14.2); RDW Standard Deviation 50.3 fL (35.1-46.3); Red Blood Cell Count 4.35 M/mm3 (4.30-5.90); White Blood Cell Count 5.79 K/mm3 (4.00-11.30)
[2021-07-06] MEDS ORDERED: Toprol Xl50 MG PO (17:47)
[2021-07-06] MEDS ORDERED: Ventolin/Prove6.7 GM INH (17:48)
[2021-07-06 17:55] LABS: International Normalized Ratio 0.99; Prothrombin Time Results 10.4 Sec (9.7-11.5)
[2021-07-06 18:35] LABS: Alanine Aminotransfer (ALT/SGP 40 U/L (12-78); Albumin, Blood 3.4 g/dL (3.4-5.0); Albumin/Globulin Ratio 0.8 (0.8-1.8); Alk Phos 57 U/L (50-136); Anion Gap 3 mmol/L (6-16); Aspartate Aminotrans (AST/SGOT 24 U/L (12-37); Bilirubin, Total 0.5 mg/dL (0.1-1.0); Blood Urea Nitrogen 19 mg/dL (8-24); Bun/Creatinine Ratio 18.4 (12.0-20.0); CO2, Blood 28 mmol/L (21-32); Calcium, Blood 9.3 mg/dL (8.5-10.1); Chloride, Blood 105 mmol/L (98-108); Creatinine, Blood 1.03 mg/dL (0.60-1.20); Globulin, Blood 4.2 g/dL (2.2-4.0); Glomerular Filtration Rate >60 (60-); Glucose, Blood 97 mg/dL (70-99); Potassium, Blood 3.9 mmol/L (3.5-5.5); Sodium, Blood 136 mmol/L (136-145); Total Protein, Blood 7.6 g/dL (6.4-8.2)
[2021-07-06 19:43] LABS: Digoxin (Lanoxin) 0.29 ug/mL (0.80-2.00)
[2021-07-07 02:49] LABS: Source, Urine Clean Catch
[2021-07-07 02:52] LABS: Appearance, Urine Clear (Clear); Bilirubin, Urine Neg (Neg); Blood, Urine Neg (Neg); Color, Urine Yellow (P-Yellow); Glucose Qualitative, Urine Neg (Neg); Ketones, Urine Neg (Neg); Leukocyte Esterase, Urine Neg (Neg); Nitrite, Urine Neg (Neg); Protein, Urine Neg (Neg); Urobilinogen, Urine NORM (Normal)
[2021-07-07 04:18] LABS: BASOPHILS ABSOLUTE AUTO 0.02 K/mm3 (0.00-0.23); BASOPHILS PERCENT AUTO 0 % (0-2); EOSINOPHILS ABSOLUTE AUTO 0.13 K/mm3 (0.00-0.68); EOSINOPHILS PERCENT AUTO 2 % (0-6); Hematocrit 33.2 % (37.0-53.0); Hemoglobin 10.1 g/dL (13.5-17.5); IMMATURE GRAN ABSOLUTE AUTO 0.03 K/mm3 (0.00-0.10); IMMATURE GRAN PERCENT AUTO 1 % (0-1); LYMPHOCYTES ABSOLUTE AUTO 1.06 K/mm3 (0.84-5.20); LYMPHOCYTES PERCENT AUTO 18 % (21-46); MONOCYTES PERCENT AUTO 7 % (4-13); Mean Corpuscular HGB 24.2 pg (26.0-34.0); Mean Corpuscular HGB Conc 30.4 g/dL (31.5-36.5); Mean Corpuscular Volume 80 fL (80-100); Mean Platelet Volume 9.2 fL (9.1-12.4); NEUTROPHILS ABSOLUTE AUTO 4.13 K/mm3 (1.96-9.15); NEUTROPHILS PERCENT AUTO 72 % (41-73); Platelet Count 306 K/mm3 (150-400); RDW Coefficient Variation 17.2 % (11.7-14.2); RDW Standard Deviation 48.2 fL (35.1-46.3); Red Blood Cell Count 4.17 M/mm3 (4.30-5.90); White Blood Cell Count 5.77 K/mm3 (4.00-11.30)
[2021-07-07 04:40] LABS: Anion Gap 6 mmol/L (6-16); Blood Urea Nitrogen 20 mg/dL (8-24); Bun/Creatinine Ratio 19.4 (12.0-20.0); CO2, Blood 31 mmol/L (21-32); Calcium, Blood 8.9 mg/dL (8.5-10.1); Chloride, Blood 103 mmol/L (98-108); Creatinine, Blood 1.03 mg/dL (0.60-1.20); Glomerular Filtration Rate >60 (60-); Glucose, Blood 111 mg/dL (70-99); Potassium, Blood 3.7 mmol/L (3.5-5.5); Sodium, Blood 140 mmol/L (136-145)
--- NOTE | 2021-07-07 14:01 | NUR ---
CARDIZEM TITRATED TO 5MG/HR HR HAS SLOWED TO 90s, HE DOES EXPERIENCED SOME APNEA AND BECOMES SHELTON WHICH DOES NOT SUSTAIN. VSS. PT AGREEING FOR THIS TIME TO LEAVE BP CUFF ON
--- NOTE | 2021-07-07 17:58 | NUR ---
SHIFT NOTE PT A/O X4, ANSWERS QUESTIONS APPROPRIATELY, DROWSY. VSS. CARDIZEM IS TITRATED TO 5MG/HR FOR HR THAT HAS REMAINED 90s-110s T/O THE EVENING. PT REPORTS SORE THROAT FROM COUGH, LOZENGES ORDERED WITH GOOD RELIEF. DENIES CP TODAY, STATED SOME CP LAST NOC, SOB NOTED, VERY TALKATIVE WHEN STAFF IN ROOM. VSS. ECHO COMPLETED. RA. PT NOW ALLOWING FOR BP CUFF TO REMAIN IN PLACE FOR REASSESSMENTS.
[2021-07-08 04:04] LABS: International Normalized Ratio 1.12; Prothrombin Time Results 11.7 Sec (9.7-11.5)
--- NOTE | 2021-07-08 05:46 | NUR ---
SHIFT SUMMARY PT ALERT AND ORIENTED X4. AFLUTTER 80-120'S. ON CARDIZEM GTT 5ML/HR. ONE EPISODE OF BRADYACARDIA TO 39. BP STABLE. AFEBRILE. SATS OVER 90% ON RA WHILE AWAKE. APNEIC WHILE SLEEPING, DESATS INTO LOW 80'S. PT INDEPENDENT FOR ADL'S, VOIDS WITH BEDSIDE URINAL. NO C/O CP OR SOB. IN BED SLEEPING WITH CALL ALARM AT SIDE, WILL CONTINUE TO MONITOR UNTIL REPORT GIVEN TO DAYSHIFT RN
[2021-07-08 12:52] LABS: Hematocrit 38.5 % (37.0-53.0); Hemoglobin 11.6 g/dL (13.5-17.5); Mean Platelet Volume 9.6 fL (9.1-12.4); Platelet Count 377 K/mm3 (150-400)
--- NOTE | 2021-07-08 17:29 | NUR ---
SHIFT NOTE PT REMAINS A/O X4, DENIES SOB AND CP. VSS. CARDIZEM OFF AT 1300 TODAY POST CARDIOLOGY CONSULT. HEPARIN INFUSING AT 15U/KG/HR. A-FLUTTER NOTED ON MONITOR 126. VSS. PT INDEPENANT TO USE URINAL IN ROOM, WITH GOOD URINE OUTPUT T/O THE DAY. PT AWARE OF PENDING CARDIOVERSION IN THE AM AND KNOWS THAT HE WILL BE NPO AT MIDNIGHT. PT HAS BEEN SLEEPING MOST OF THE DAY, CONTINUES TO HAVE APNEA WHEN SLEEPING.
[2021-07-09 03:30] LABS: Anti-Xa UFH, PHA Monitoring 0.3 IU/mL; International Normalized Ratio 1.08; Prothrombin Time Results 11.3 Sec (9.7-11.5)
--- NOTE | 2021-07-09 05:56 | NUR ---
SHIFT SUMMARY PT ALERT AND ORIENTED X4. AFEBRILE. BP STABLE. HR AFLUTTER 120'S. DENIES PAIN OR SOB. ASLEEP MOST OF NIGHT. APNEIC. HEP GTT INFUSING AT 15U/KG/HR, RATE REMAINS UNCHANGED. NPO SINCE MIDNIGHT FOR MADONNA AND POSSIBLE CARDIOVERSION. VOIDS INDEPENDENTLY WITH BEDSIDE URINAL. IN BED SLEEPING WITH CALL ALARM AT SIDE. WILL CONTINUE TO MONITOR UNTIL REPORT GIVEN TO DASIAARIELLA FARR
[2021-07-09 08:19] LABS: Hematocrit 36.1 % (37.0-53.0)
[2021-07-09 15:23] LABS: Hematocrit 36.3 % (37.0-53.0); Hemoglobin 11.1 g/dL (13.5-17.5); Mean Platelet Volume 9.3 fL (9.1-12.4); Platelet Count 359 K/mm3 (150-400)
--- NOTE | 2021-07-09 18:34 | NUR ---
SHIFT NOTE PT WITH ELECTRICAL CARDIOVERSION THIS MORNING, HE NOW REMAINS IN SINUS RHYTHM AT 88 AT THIS TIME. DENIES SOB OR CP T/O THE DAY. PT RECOVERED WELL FROM SEDATION. PT HAS BEEN ASLEEP FOR A GOOD DEAL OF THE DAY. PT AND FMAILY ARE THOROUGHLY EDUCATED ABOUT MEDICATION COMPLIANCE AND THE IMPORTANCE OF FOLLOWING UP TO HAVE SLEEP STUDY ORDERED. PT UP TO BEDSIDE CHAIR AT THIS TIME. PT REMAINS ON HEPARIN GTT AT 15U/K/H VIA PUMP, PHARMACY IS FOLLOWING INR FOR THERAPEUTIC RANGE.
[2021-07-10 04:27] LABS: Hematocrit 33.5 % (37.0-53.0); Hemoglobin 10.1 g/dL (13.5-17.5); Mean Platelet Volume 9.7 fL (9.1-12.4); Platelet Count 302 K/mm3 (150-400)
[2021-07-10 04:45] LABS: Anti-Xa UFH, PHA Monitoring 0.35 IU/mL; International Normalized Ratio 1.26
--- NOTE | 2021-07-10 06:20 | NUR ---
NO ACUTE EVENTS OVERNIGHT. PER MRI SPECIALIST, HEART RHYTHM REMAINED IN SINUS RHYTHM WITH 1ST DEGREE AV BLOCK THROUGHOUT THE SHIFT. PT SLEPT THROUGH THE NIGHT, FREQUENT EPISODES OF APNEA OBSERVED WHILE PT SLEEPING. STATED UPON ADMISSION, PT REPORTS THAT HE USES A CPAP MACHINE AT HOME THAT HIS FATHER PURCHASED FOR HIM. HOWEVER, THE HOSE BROKE RECENTLY AND THE PT HASN'T USED THE CPAP IN SEVERAL WEEKS. WHEN ASKED IF HE KNOWS THE SETTINGS FOR HIS CPAP SO THAT WE CAN SET HIM UP WITH ONE WHILE INPATIENT, PT REPEATEDLY INSISTED THAT HIS HOME CPAP MACHINE DOESN'T REQUIRE ANY SETTINGS BE PROGRAMMED AND THAT HE JUST PUSHES THE ON/OFF BUTTON "AND IT WORKS." PT STATES THAT HE HAS HAD REFERRALS FOR A SLEEP STUDIES IN THE PAST BUT HAS YET TO SET UP AN APPOINTMENT. EDUCATION PROVIDED TO PT ON THE IMPORTANCE OF FOLLOW THROUGH WITH A SLEEP STUDY AND USE OF A CPAP/BIPAP MACHINE PRESCRIBED. ADDITIONAL EDUCATION PROVIDED REGARDING THE IMPORTANCE OF COMPLIANCE WITH HIS HOME MEDICATION ORDERS.
[2021-07-10 09:09] LABS: Anion Gap 3 mmol/L (6-16); Blood Urea Nitrogen 24 mg/dL (8-24); CO2, Blood 31 mmol/L (21-32); Calcium, Blood 8.6 mg/dL (8.5-10.1); Chloride, Blood 103 mmol/L (98-108); Glomerular Filtration Rate >60 (60-); Glucose, Blood 179 mg/dL (70-99); Potassium, Blood 4.1 mmol/L (3.5-5.5); Sodium, Blood 137 mmol/L (136-145)
--- NOTE | 2021-07-10 18:28 | NUR ---
SHIFT SUMMARY PT AXO, PLEASANT AND COOPERATIVE WITH CARE. AT START OF SHIFT, PT WAS SLEEPING WITH APNEIC EPISODES. UPON MEASURING VS, PT O2 WAS 79. THIS NURSE WOKE PATIENT UP AND ENCOURAGED HIM TO BREATH AND SATS RECOVERED QUICKLY. PT STATED THAT HE NEEDS HIS CPAP. DR PONCE NOTIFIED 2435, NEW ORDERS PLACED FOR RT. HEPARIN DRIP INFUSING PER EMAR. PT ON TELE, NSR IN 70'S. 775ML URINE OUT THIS SHIFT. PT DENIES PAIN, SOB AND NV. BED IN LOW POSITION, CALL LIGHT WITHIN REACG. UP AD MADALYN IN ROOM.
[2021-07-11 04:11] LABS: Hematocrit 32.2 % (37.0-53.0); Hemoglobin 9.7 g/dL (13.5-17.5); Mean Platelet Volume 9.3 fL (9.1-12.4); Platelet Count 268 K/mm3 (150-400)
[2021-07-11 04:25] LABS: Anti-Xa UFH, PHA Monitoring 0.31 IU/mL; International Normalized Ratio 1.48; Prothrombin Time Results 15.1 Sec (9.7-11.5)
--- NOTE | 2021-07-11 06:23 | NUR ---
NO ACUTE EVENTS OVERNIGHT. HEPARIN DRIP DOSING CONTINUES TO BE THERAPEUTIC AT 15 UNITS/KG/HOUR. RT CONSULTED TO SET UP CPAP PER MD ORDER. PT WAS NOT COMPLIANT WITH USE OF THE CPAP THROUGHOUT THE NIGHT, REMOVING IT AND SETTING IT ASIDE SEVERAL TIMES. WITHOUT THE CPAP IN PLACE, HIS SpO2 DROPS INTO THE 70-80 PERCENTILES RANGE DURING APNEIC SPELLS. BLOOD PRESSURE DROPPED INTO THE 90S/60S FOLLOWING ADMINISTRATION OF HS DOSE OF [place]. OTHERWISE, PT REMAINS INDEPENDENT IN THE ROOM AND REQUIRING LITTLE ASSISTANCE OVERNIGHT.
[2021-07-11 15:14] LABS: IMMATURE RETIC FRACTION 20.1 % (2.3-16.0); RETIC HGB EQUIVALENT 24.8 pg (28.20-36.60); RETICULOCYTE ABSOLUTE 0.087 M/mm3 (0.0200-0.1100); RETICULOCYTE COUNT PERCENT 2.18 % (0.50-2.50)
[2021-07-11 15:56] LABS: Percent Saturation 4.7 % (20.0-50.0)
--- NOTE | 2021-07-11 18:41 | NUR ---
SHIFT SUMMARY: NO ACUTE CHANGES T/OUT SHIFT. PT CONTINUES A&O, COOPERATIVE W/CARE. MAINTAINS O2 SATS >92% ON RA. SR ON MONITOR. PT DENIES SOB, CP T/OUT SHIFT. HEPARIN INFUSION CONTINUES PER ORDERS. PT INDEPENDENT IN ROOM, USES CALL LIGHT APPROPRIATELY. AT THIS TIME, PT RESTING QUIETLY IN ROOM, TALKING TO FAMILY ON THE PHONE. WILL CONTINUE TO MONITOR AND TREAT ACCORDINGLY UNTIL CHANGE OF SHIFT.
[2021-07-12 05:15] LABS: BASOPHILS ABSOLUTE AUTO 0.02 K/mm3 (0.00-0.23); BASOPHILS PERCENT AUTO 0 % (0-2); EOSINOPHILS ABSOLUTE AUTO 0.09 K/mm3 (0.00-0.68); EOSINOPHILS PERCENT AUTO 2 % (0-6); Hematocrit 31.8 % (37.0-53.0); Hemoglobin 9.6 g/dL (13.5-17.5); IMMATURE GRAN ABSOLUTE AUTO 0.01 K/mm3 (0.00-0.10); IMMATURE GRAN PERCENT AUTO 0 % (0-1); LYMPHOCYTES ABSOLUTE AUTO 1.36 K/mm3 (0.84-5.20); LYMPHOCYTES PERCENT AUTO 29 % (21-46); MONOCYTES ABSOLUTE AUTO 0.45 K/mm3 (0.16-1.47); MONOCYTES PERCENT AUTO 10 % (4-13); Mean Corpuscular HGB 24.1 pg (26.0-34.0); Mean Corpuscular HGB Conc 30.2 g/dL (31.5-36.5); Mean Corpuscular Volume 80 fL (80-100); Mean Platelet Volume 9.7 fL (9.1-12.4); NEUTROPHILS ABSOLUTE AUTO 2.76 K/mm3 (1.96-9.15); NEUTROPHILS PERCENT AUTO 59 % (41-73); Platelet Count 254 K/mm3 (150-400); RDW Coefficient Variation 16.3 % (11.7-14.2); RDW Standard Deviation 46.6 fL (35.1-46.3); Red Blood Cell Count 3.99 M/mm3 (4.30-5.90); White Blood Cell Count 4.69 K/mm3 (4.00-11.30)
[2021-07-12 05:37] LABS: Anion Gap 3 mmol/L (6-16); Blood Urea Nitrogen 20 mg/dL (8-24); Bun/Creatinine Ratio 19.2 (12.0-20.0); CO2, Blood 29 mmol/L (21-32); Calcium, Blood 8.9 mg/dL (8.5-10.1); Chloride, Blood 106 mmol/L (98-108); Creatinine, Blood 1.04 mg/dL (0.60-1.20); Glomerular Filtration Rate >60 (60-); Glucose, Blood 114 mg/dL (70-99); Potassium, Blood 4.1 mmol/L (3.5-5.5); Sodium, Blood 138 mmol/L (136-145)
--- NOTE | 2021-07-12 05:57 | NUR ---
NO ACUTE EVENTS OVERNIGHT WITH THE EXCEPTION OF NOT GIVING THE PRESCRIBED COZAAR DOSE AT BEDTIME DUE TO SYSTOLIC BLOOD PRESSURE IN THE 90S. EDUCATION PROVIDED REGARDING THE MEDICATION COZAAR AND THE IMPORTANCE OF MONITORING HIS BLOOD PRESSURE DAILY. PATIENT HAS ADDITIONAL QUESTIONS ABOUT WHY THE COZAAR HAS BEEN ADDED TO HIS MEDICATION REGIMEN, AND I ENCOURAGED HIM TO SPEAK WITH THE PROVIDER REGARDING THIS. I WILL ALSO PASS ALONG HIS QUESTIONS TO THE DAY SHIFT RN FOR DISCUSSION WITH THE PROVIDER PRIOR TO HOSPITAL DISCHARGE.
[2021-07-12 06:14] LABS: International Normalized Ratio 1.77; Prothrombin Time Results 17.9 Sec (9.7-11.5)
[2021-07-12 06:20] LABS: Anti-Xa UFH, PHA Monitoring 0.29 IU/mL
[2021-07-12 15:32] LABS: International Normalized Ratio 1.84; Prothrombin Time Results 18.6 Sec (9.7-11.5)
--- NOTE | 2021-07-12 17:00 | NUR ---
PT LEAVES AMA: PT LAB WORK CONTINUES TO SHOW SUB THERAPEUTIC INR LEVELS. PT VOCAL ABOUT DESIRE TO GO HOME. PROVIDER HAS BEEN AWARE AND REPEAT LABS WERE DRAWN THIS AFTERNOON FOR REASSESSMENT. LEVELS CONTINUE SUB THERAPEUTIC, PT INFORMED ABOUT RESULTS AND STATES INTENT TO GO HOME. DR ACOSTA NOTIFIED, ARRIVES TO BEDSIDE, PT INFORMED ABOUT RISK OF LEAVING AMA, PT V/U AND SIGNS AMA PAPERWORK. IV DC'd WNL, PT DRESSES INDEPENDENTLY AND AMBULATES FROM DEPARTMENT IN NAD.
== END 2021-07-12 14:45 | disposition left against medical advice (07) | DRG 308 ==
LOC: ER 17:06 → PCU 23:12
PROVIDERS: Emergency Medicine; Family Medicine; Internal Medicine Cardiovascular Disease; Physician Assistant; Student in an Organized Health Care Education/Training Program; ADMIT Internal Medicine
PROC: 5A2204Z Restoration of Cardiac Rhythm, Single (ICD-10-PCS; principal; 2021-07-10)
PROC: B245ZZ4 Ultrasonography of Left Heart, Transesophageal (ICD-10-PCS; 2021-07-10)
DX: I48.4 Atypical atrial flutter (principal); J96.01 Acute respiratory failure with hypoxia; I50.42 Chronic combined systolic (congestive) and diastolic (congestive) heart failure; Z68.41 Body mass index [BMI] 40.0-44.9, adult; I42.0 Dilated cardiomyopathy; I48.91 Unspecified atrial fibrillation; D64.9 Anemia, unspecified; I11.0 Hypertensive heart disease with heart failure; R77.8 Other specified abnormalities of plasma proteins; E78.5 Hyperlipidemia, unspecified; E87.70 Fluid overload, unspecified; F15.10 Other stimulant abuse, uncomplicated; R79.1 Abnormal coagulation profile; G47.33 Obstructive sleep apnea (adult) (pediatric); I71.2 Thoracic aortic aneurysm, without rupture; F43.10 Post-traumatic stress disorder, unspecified; E66.01 Morbid (severe) obesity due to excess calories; F12.10 Cannabis abuse, uncomplicated; Z82.49 Family history of ischemic heart disease and other diseases of the circulatory system; Z79.899 Other long term (current) drug therapy; Z95.2 Presence of prosthetic heart valve; Z79.01 Long term (current) use of anticoagulants; Z95.828 Presence of other vascular implants and grafts; Z83.3 Family history of diabetes mellitus; Z86.14 Personal history of Methicillin resistant Staphylococcus aureus infection; E87.5 Hyperkalemia; R79.89 Other specified abnormal findings of blood chemistry
CPT/HCPCS: 36415; 71045; 80048; 80053; 80162; 81003; 82607; 82728; 82746; 83540; 83550; 83880; 84443; 84484; 85014; 85018; 85025; 85045; 85049; 85520; 85610; 85730; 93005; 93010; 93312; 93325; 94660; 94760; 96365; 96366; 96375; 99285-25; A9270; C8929; J1644; J1940; J2405; J2704; J7030; J7040; Q9957

== ENCOUNTER 2022-05-24 01:16 | Inpatient (IN) | payer OTHER ==
[~2022-05-24] VITALS: Ht 180.3 cm; Wt 137.3 kg
[~2022-05-24 01:16] MED LIST changes: +METO100ER PO; +Ventolin/Prove6.7 GM INH
[2022-05-24 02:39] LABS: BASOPHILS ABSOLUTE AUTO 0.02 K/mm3 (0.00-0.23); BASOPHILS PERCENT AUTO 0 % (0-2); EOSINOPHILS ABSOLUTE AUTO 0.06 K/mm3 (0.00-0.68); EOSINOPHILS PERCENT AUTO 1 % (0-6); Hematocrit 28.8 % (37.0-53.0); Hemoglobin 8.4 g/dL (13.5-17.5); IMMATURE GRAN ABSOLUTE AUTO 0.04 K/mm3 (0.00-0.10); IMMATURE GRAN PERCENT AUTO 1 % (0-1); LYMPHOCYTES ABSOLUTE AUTO 0.72 K/mm3 (0.84-5.20); LYMPHOCYTES PERCENT AUTO 11 % (21-46); MONOCYTES ABSOLUTE AUTO 0.47 K/mm3 (0.16-1.47); MONOCYTES PERCENT AUTO 7 % (4-13); Mean Corpuscular HGB Conc 29.2 g/dL (31.5-36.5); Mean Corpuscular Volume 76 fL (80-100); Mean Platelet Volume 9.7 fL (9.1-12.4); NEUTROPHILS ABSOLUTE AUTO 5.55 K/mm3 (1.96-9.15); NEUTROPHILS PERCENT AUTO 81 % (41-73); Platelet Count 286 K/mm3 (150-400); RDW Coefficient Variation 20.9 % (11.7-14.2); RDW Standard Deviation 55.4 fL (35.1-46.3); Red Blood Cell Count 3.81 M/mm3 (4.30-5.90); White Blood Cell Count 6.86 K/mm3 (4.00-11.30)
[2022-05-24 02:57] LABS: Albumin, Blood 3.4 g/dL (3.4-5.0); Albumin/Globulin Ratio 0.9 (0.8-1.8); Bilirubin, Total 0.5 mg/dL (0.1-1.0); Bun/Creatinine Ratio 23.5 (12.0-20.0); Calcium, Blood 8.8 mg/dL (8.5-10.1); Creatinine, Blood 1.49 mg/dL (0.60-1.20); Globulin, Blood 3.8 g/dL (2.2-4.0); Potassium, Blood 3.8 mmol/L (3.5-5.5); Total Protein, Blood 7.2 g/dL (6.4-8.2)
[2022-05-24 03:40] LABS: International Normalized Ratio 1.37; Prothrombin Time Results 14.1 Sec (9.7-11.5)
[2022-05-24 04:52] LABS: Influenza A, PCR NEGATIVE (NEGATIVE); Influenza B, PCR NEGATIVE (NEGATIVE); Resp Syncytial Virus, PCR NEGATIVE (NEGATIVE); SARS-Cov-2 (COVID-19) PCR, MMC NEGATIVE (NEGATIVE)
--- NOTE | 2022-05-24 06:37 | NUR ---
ARRIVAL TO PCU7 PT ARRIVED TO PCU AT APPROXIMATELY 0540. PT TRANSFERED FROM ER [facility] TO HOSPITAL BED WITH SBA. PT A&Ox4, COMMUNICATES NEEDS APPROPRIATELY, ORIENTED TO CALL LIGHT/UNIT. BP STABLE, DENIES CP/PRESSURE. SINUS TACH 120's, PT ARRIVED WITH CARDIZEM gtt @ 20. SpO2> 92% 2L VIA NC, REPORTS MILD SOB WITH ACTIVITY, DENIES SOB AT REST. PT NPO. HEPARIN gtt TO BE STARTED ONCE ADDITIONAL IV IS PLACED. PT DENIES PAIN, IS RESTING COMFORABLY. WILL REPORT TO ONCOMING RN.
[2022-05-24 07:13] LABS: Digoxin (Lanoxin) 0.35 ug/mL (0.80-2.00)
--- NOTE | 2022-05-24 10:47 | NUR ---
PT CONTINUES TO REMOVE MONITORING EQUIPMENT DESPITE CONTINUED EDUCATION, UNABLE TO MONITOR VITALS NEEDS PT WILL NOT COMPLY
--- NOTE | 2022-05-24 11:47 | NUR ---
CARDIZEM OFF, PT'S MOTHER CALLED TO BRING IN HOME CPAP SPO2 DROPS R/T TIMBO WHILE SLEEPING, PT IS SLEEPING FOR THE ENTIRE SHIFT. RT IS AWARE THAT CPAP WILL BE BE ARRIVING
--- NOTE | 2022-05-24 18:23 | NUR ---
PT AGGRESIVE AT THIS TIME HE HAS REMOVED HIS C-PAP AND IS DESATURATING ATTEMPTED TO PLACE NASAL CANNULA PT THEN THROWS FIST IN THIS RN'S FACE. PT REFUSED TO ALLOW NASAL CANNULA HE THEN BEGINS CURSING AT STAFF AND CALLING STAFF NAMES. ATTEMPTED TO MEDICATE PT HE CONTINUES TO BE AGGRESSIVE WITH THIS RN, BUSINESS MACHINES TEACHER PATIENCE NOTIFIED AND PATIENCE TO ROOM TO MEDICATE PT WITH ADDITIONAL STAFF. SHIFT NOTE PT HAS BEEN ASLEEP FOR A GOOD PORTION OF THE DAY, HE NODS OFF WHEN BEING TALKED TO BY STAFF. PT PLACED ON C-PAP WHICH HAS BEEN ADJUSTED NUMEROUS TIMES T/O THE DAY TO MAINTAIN SPO2 GREATER THAN 90%. PT WITH SEVERE TIMBO. PT HAS NOT BEEN COMPLIANT T/O THE DAY, HE HAS REFUSED TO WEAR C-PAP HE WANTS TO TALK ON PHONE WITH HIS GIRLFRIEND BUT FALLS ASLEEP TALKING ON PHONE WITH HER, WHEN STAFF ATTEMPTS TO HANG UP PHONE PT BECOMES AGITATED AND SCREAMS AT STAFF. PT REMOVES C-PAP AND NASAL CANNULA HE STATES THAT HE REMOVED THEM ON PURPOSE.
--- NOTE | 2022-05-24 18:35 | NUR ---
Ambulated to bathroom, IV pole in tow, to void. Requested to sit up in chair for a while. Oral medications given at this time.
--- NOTE | 2022-05-24 20:51 | NUR ---
ASSSUMPTION OF CARE THIS RN ASSUMED CARE OF PATIENT AT 1900. REPORT TAKEN FROM DANTE FARR. PATIENT WTIH HEP GTT INFUSING AT 15U/KG/HR. DILT GTT OFF AT TIME OF SHIFT CHANGE. PATIENT'S HR CURRENTLY MAINTAINING IN THE 120'S, RESTARTED DILT GTT AT 5MG/HR AROUND 2029. NO FURTHER PO MEDS FOR RATE CONTROL ON EMAR AT THIS TIME. WILL TITRATE TO MAINTAIN HR UNDER 110 STATED PER ORDER. BP STABLE AT THIS TIME; CYCLING Q30 MINUTES D/T DILT GTT. SPO2 >92% ON 2L VIA NC AT THIS TIME. PATIENT REFUSING CPAP AT THIS TIME; THIS RN WILL CONTINUE TO ENCOURAGE PATIENT TO WEAR CPAP FOR SLEEP. PER PREVIOUS RN THE PATIENT WAS AGGITATED AND NONCOMPLIANT WITH CPAP THROUGHOUT DAY SHIFT AND WAS REPORTED TO YELL AT STAFF. PATIENT HAS BEEN CALM AND POLITE TO THIS RN DURING THIS SHIFT SO FAR. PATIENT GIVEN RECLINER FOR COMFORT TO SLEEP IN TONIGHT. ALERT AND ORIENTED FULLY. CALL LIGHT WITHIN REACH.
--- NOTE | 2022-05-24 23:48 | NUR ---
PATIENT UPDATE DILT GTT PLACED ON STANDBY D/T HR MAINTAINING 70-80'S. SEE EMAR. HR CONTINUES TO BE AFIB/FLUTTER WITH HR CURRENTLY MAINTAINING IN THE 90'S. OTHER VITALS STABLE. PATIENT PLACED ON CPAP AROUND 2230. OCCASIONALLY STILL DESATS TO THE 80'S, BUT IS OTHERWISE MAINTAINING SPO2 >90%. SLEEPING IN RECLINER WTIH LEGS ELEVATED. HEP GTT INFUSING AT 15U/KG/HR. CALL LIGHT WITHIN REACH.
[2022-05-25 03:48] LABS: Hematocrit 31.1 % (37.0-53.0); Hemoglobin 8.7 g/dL (13.5-17.5); Mean Corpuscular HGB 21.8 pg (26.0-34.0); Mean Corpuscular Volume 78 fL (80-100); Mean Platelet Volume 9.4 fL (9.1-12.4); Platelet Count 316 K/mm3 (150-400); RDW Coefficient Variation 21.5 % (11.7-14.2); RDW Standard Deviation 57.2 fL (35.1-46.3); Red Blood Cell Count 3.99 M/mm3 (4.30-5.90); White Blood Cell Count 6.41 K/mm3 (4.00-11.30)
[2022-05-25 04:01] LABS: Anti-Xa UFH, PHA Monitoring 0.33 IU/mL; International Normalized Ratio 1.23; Prothrombin Time Results 12.7 Sec (9.7-11.5)
[2022-05-25 04:05] LABS: Albumin, Blood 3.4 g/dL (3.4-5.0); Anion Gap 3 mmol/L (6-16); Blood Urea Nitrogen 26 mg/dL (8-24); Bun/Creatinine Ratio 22.2 (12.0-20.0); CO2, Blood 31 mmol/L (21-32); Calcium, Blood 8.7 mg/dL (8.5-10.1); Chloride, Blood 103 mmol/L (98-108); Creatinine, Blood 1.17 mg/dL (0.60-1.20); Glomerular Filtration Rate 76 (60-); Glucose, Blood 195 mg/dL (70-99); Magnesium, Blood 2.3 mg/dL (1.6-2.4); Phosphorus, Blood 3.5 mg/dL (2.5-4.9); Sodium, Blood 137 mmol/L (136-145)
--- NOTE | 2022-05-25 04:52 | NUR ---
SHIFT SUMMARY PATIENT ALERT AND ORIENTED FULLY. PATIENT WAS ABLE TO BE RA WHILE AWAKE WITH SPO2 >90%. CPAP USED WHILE PATIENT WAS SLEEPING DURING THIS SHIFT. PATIENT'S DILT GTT PLACED ON STANDBY, SEE PREVIOUS NOTES. PATIENT'S HR 110-120 AT THIS TIME. DENIES CHEST PAIN/PRESSURE AND SOB AT REST. BP STABLE. PATIENT DECLINING CPAP AT THIS TIME. 2L VIA NC WHILE SLEEPING CURRENTLY. SLEPT IN RECLINER THROUGHOUT THE NIGHT. HEP GTT INFUSING AT 15U/KG/HR. CONTINENT OF B/B. CALLING APPROPRIATELY. AMBULATING TO THE BATHROOM WITH IV POLE. PATIENT WAS CALM AND COOPERATIVE WITH CARE DURING THIS SHIFT. NO EPISODES OF AGGITATION NOTED BY THIS RN PREVIOUSLY NOTED BY DAY SHIFT RN. CALL LIGHT WITHIN REACH. THIS RN WILL CONTINUE TO MONITOR UNTIL SHIFT CHANGE AT 0700.
--- NOTE | 2022-05-25 13:11 | NUR ---
CARE NOTE THIS NURSE PLACED CALL TO DR. MUNGUIA TO COMMUNICATE HR IS MAINTAINING IN 110'S-120 AT APPROX. 1310 W/ NO ANSWER, WILL CONTINUE TO MONITOR. PT NOW APPEARS TO BE SLEEPING AND IS WEARING CPAP, SPO2 94%.
--- NOTE | 2022-05-25 13:24 | NUR ---
CARE NOTE THIS NURSE SPOKE W/ DR. ADAMS IN REGARDS TO HR IN 110'S-120 AT APPROX. 1325. WILL CONTINUE TO MONITOR.
--- NOTE | 2022-05-25 16:37 | NUR ---
SHIFT SUMMARY PT IS ALERT AND ORIENTED X 4, HE HAS BEEN SOMNOLENT DURING SHIFT IN BETWEEN PT CARE BUT WAKES EASILY TO VERBAL STIMULI. SPO2 MAINTAINED VIA 2L NC, PT ENCOURAGED TO WEAR CPAP DUE TO SLEEPING FOR MAJORITY OF SHIFT BUT HE REPORTS INABILITY TO REST WHEN SLEEPING AND STATED THE CPAP WAS "STUPID." WHEN AWAKE, PT IS ON RA AND SPO2 >95%. HR HAS BEEN 110'S-120, MADE AWARE, SEE PREVIOUS NOTES. BP IS STABLE AND PT HAS DENIED FEELINGS OF CHEST PAIN/PRESSURE. HE REPORTED FEELING SOB W/ EXERTION. HE HAS BEEN INDEPENDENT IN ROOM AND TO BATHROOM. HEPARIN DRIP INFUSING PER EMAR ORDERS IN LEFT AC. PT IS ABLE TO REPOSITION SELF INDEPENDENTLY. HE HAS DENIED FEELINGS OF NAUSEA DURING SHIFT, NO COUGH NOTED. APNEA NOTED WHEN PT IS SLEEPING, CONTINUOUS SPO2 MONITOR IN PLACE. PT NOW APPEARS TO BE SLEEPING IN BED, CALL LIGHT IS IN REACH. WILL CONTINUE TO MONITOR UNTIL REPORT GIVEN.
--- NOTE | 2022-05-25 21:29 | NUR ---
ASSUMPTION OF CARE THIS RN ASSUMED CARE OF PATIENT AT 1900. REPORT TAKEN FROM HUMAIRA FARR. PATIENT CONTINUES TO BE IN AFIB/AFLUTTER WITH HR MAINTAINING 110-120'S. OCCASIONALLY HITTING THE 80-90'S WHILE SLEEPING. PATIENT PLACED ON CPAP AT BEGINNING OF THIS SHIFT D/T SLEEPING AND DESATTING INTO THE 70-80'S. PATIENT APPEARS TO BE RESTING COMFORTABLY WITH CPAP ON AND SPO2 >92% AT THIS TIME. BP STABLE. AFEBRILE. PATIENT ORIENTED FULLY AND CALLING APPROPRIATELY. CALM AND COOPERATIVE WITH CARE AT THIS TIME. HEP GTT INFUSING PER EMAR. BED IN LOWEST POSITION AND CALL LIGHT WITHIN REACH.
[2022-05-26 03:52] LABS: Hematocrit 28.3 % (37.0-53.0); Hemoglobin 8.3 g/dL (13.5-17.5); Mean Corpuscular HGB 22.4 pg (26.0-34.0); Mean Corpuscular HGB Conc 29.3 g/dL (31.5-36.5); Mean Corpuscular Volume 77 fL (80-100); Mean Platelet Volume 9.8 fL (9.1-12.4); Platelet Count 276 K/mm3 (150-400); RDW Coefficient Variation 21.2 % (11.7-14.2); RDW Standard Deviation 56.3 fL (35.1-46.3); White Blood Cell Count 5.17 K/mm3 (4.00-11.30)
[2022-05-26 04:12] LABS: Anti-Xa UFH, PHA Monitoring 0.32 IU/mL; International Normalized Ratio 1.31; Prothrombin Time Results 13.5 Sec (9.7-11.5)
[2022-05-26 04:13] LABS: Albumin, Blood 3.2 g/dL (3.4-5.0); Anion Gap 3 mmol/L (6-16); Blood Urea Nitrogen 21 mg/dL (8-24); Bun/Creatinine Ratio 19.8 (12.0-20.0); CO2, Blood 32 mmol/L (21-32); Calcium, Blood 8.6 mg/dL (8.5-10.1); Chloride, Blood 103 mmol/L (98-108); Creatinine, Blood 1.06 mg/dL (0.60-1.20); Glomerular Filtration Rate 86 (60-); Glucose, Blood 144 mg/dL (70-99); Magnesium, Blood 2.5 mg/dL (1.6-2.4); Phosphorus, Blood 3.7 mg/dL (2.5-4.9); Potassium, Blood 3.7 mmol/L (3.5-5.5); Sodium, Blood 138 mmol/L (136-145)
--- NOTE | 2022-05-26 04:56 | NUR ---
SHIFT SUMMARY NO ACUTE CHANGES OVERNIGHT. PATIENT CONTINUES TO HAVE APNEIC EPISODES EVEN WHILE ON THE CPAP. OTHERWISE SPO2 >92% WHILE AWAKE ON RA OR ON CPAP WHILE SLEEPING. AFLUTTER ON MONITOR WITH HR 110-120'S. DENIES CHEST PAIN/PRESSURE. BP STABLE. AFEBRILE. ALERT AND ORIENTED. INDEPENDENT WITH ADL'S. BED IN LOWEST POSITION AND CALL LIGHT WITHIN REACH. THIS RN WILL CONTINUE TO MONITOR UNTIL SHIFT CHANGE AT 0700.
[2022-05-26 09:18] LABS: Digoxin (Lanoxin) 0.32 ug/mL (0.80-2.00)
--- NOTE | 2022-05-26 10:08 | NUR ---
ALERT AND ORIENTED, DOZING OFF SLEEPING, DRMARQIAT ROUNDED ON PATIENT, PATIENT PROBABLE NOT GOING HOME TODAY DUE TO RATE CONTROL, TELE AFLUTTER 110-120S, PATIENT SHOWERED, MAKES NEEDS KNOWN, DESATS WHILE SLEEPING, PATIENT HAS POOR CIRCULATION ON FINGERS, PATIENT DESATS TO 50% WITHOUT A GOOD PLETH, PATIENT EASILY WAKES AND RECOVERS, CALL LIGHT WITH IN REACH
[2022-05-27 03:41] LABS: Hematocrit 31.1 % (37.0-53.0); Hemoglobin 8.8 g/dL (13.5-17.5); Mean Corpuscular HGB 21.5 pg (26.0-34.0); Mean Corpuscular HGB Conc 28.3 g/dL (31.5-36.5); Mean Corpuscular Volume 76 fL (80-100); Mean Platelet Volume 9.5 fL (9.1-12.4); Platelet Count 308 K/mm3 (150-400); RDW Coefficient Variation 21.2 % (11.7-14.2); RDW Standard Deviation 56.7 fL (35.1-46.3); White Blood Cell Count 5.27 K/mm3 (4.00-11.30)
[2022-05-27 04:00] LABS: Anti-Xa UFH, PHA Monitoring 0.3 IU/mL; International Normalized Ratio 1.45; Prothrombin Time Results 14.9 Sec (9.7-11.5)
[2022-05-27 04:14] LABS: Albumin, Blood 3.4 g/dL (3.4-5.0); Anion Gap 2 mmol/L (6-16); Blood Urea Nitrogen 20 mg/dL (8-24); Bun/Creatinine Ratio 18.9 (12.0-20.0); CO2, Blood 32 mmol/L (21-32); Calcium, Blood 8.9 mg/dL (8.5-10.1); Chloride, Blood 103 mmol/L (98-108); Creatinine, Blood 1.06 mg/dL (0.60-1.20); Digoxin (Lanoxin) 0.88 ug/mL (0.80-2.00); Glomerular Filtration Rate 86 (60-); Glucose, Blood 113 mg/dL (70-99); Magnesium, Blood 2.5 mg/dL (1.6-2.4); Potassium, Blood 4.2 mmol/L (3.5-5.5); Sodium, Blood 137 mmol/L (136-145)
--- NOTE | 2022-05-27 06:36 | NUR ---
END OF SHIFT PT PLEASANT AND COMPLIANT WITH CPAP, UP TO BATHROOM AND USING URINAL, UO ADEQUATE, VSS, AFEBRILE, HEPARIN GTT UNCHANGED AT 15 UNITS/30 ML/HR, NO PRN'S
--- NOTE | 2022-05-27 14:57 | NUR ---
ROUNDED ON PT. PT CURRENTLY SLEEPING IN CHAIR NEXT TO BED.
--- NOTE | 2022-05-27 17:06 | NUR ---
SHIFT SUMMARY PT A/OX 4 AND COOPERATIVE OF CARE. PT CONTINUED TO BE A-FLUTTER WITH RATE RANGING 90-120'S. OTHER VSS THROUGHOUT SHIFT. ON 5L NC AT BEGINNING OF SHIFT, PT REMOVED O2 ABOUT 1200. SATS STABLE IN THE 90'S ON RA WHILE PT IS AWAKE. PT SLEPT A COUPLE OF TIMES DURING SHIFT. PT HAS APNEIC PERIODS WHEN SLEEPING, SATS WILL DROP TO LOW 80'S BRIEFLY AND RETURN TO THE 90'S PRETTY QUICKLY. NO REPORT OF CHEST PAIN/PRESSURE THROUGHOUT SHIFT. PT REPORTED TO DR ARTHUR DONIS THAT HE COULD "FEEL FLUIDS" ON HIS LUNGS. LASIX SWITCHED TO IV, HEPARIN CONTINUED AT 15U/KG/HR PER ORDER. METOPROLOL DOSE INCREASED TODAY, SEE EMAR. PT INDEPENDENT IN ROOM, PT UNPLUGS IV MACHINES FROM THE WALL AND TRANSFER SELF TO AND FROM BATHROOM, TOLERATES WELL.
--- NOTE | 2022-05-27 18:03 | NUR ---
THIS ENTERED PT ROOM TO GIVE 1800 MEDS. PT HAD FAMILY PRESENT IN ROOM. PT FAMILY APPEARS TO HAVE BROUGHT PT [employer] FOOD AND SNAPPLE DRINKS. PT REMINDED OF FLUID RESTRICTION.
[2022-05-28 04:06] LABS: Hematocrit 31.5 % (37.0-53.0); Mean Corpuscular HGB 21.7 pg (26.0-34.0); Mean Corpuscular HGB Conc 28.6 g/dL (31.5-36.5); Mean Corpuscular Volume 76 fL (80-100); Platelet Count 275 K/mm3 (150-400); RDW Coefficient Variation 20.5 % (11.7-14.2); RDW Standard Deviation 56.2 fL (35.1-46.3); Red Blood Cell Count 4.14 M/mm3 (4.30-5.90); White Blood Cell Count 4.68 K/mm3 (4.00-11.30)
[2022-05-28 04:25] LABS: International Normalized Ratio 1.48; Prothrombin Time Results 15.1 Sec (9.7-11.5)
[2022-05-28 04:31] LABS: Albumin, Blood 3.3 g/dL (3.4-5.0); Anion Gap 2 mmol/L (6-16); Blood Urea Nitrogen 17 mg/dL (8-24); Bun/Creatinine Ratio 17.9 (12.0-20.0); CO2, Blood 32 mmol/L (21-32); Calcium, Blood 8.9 mg/dL (8.5-10.1); Chloride, Blood 106 mmol/L (98-108); Creatinine, Blood 0.95 mg/dL (0.60-1.20); Glomerular Filtration Rate 98 (60-); Glucose, Blood 134 mg/dL (70-99); Magnesium, Blood 2.5 mg/dL (1.6-2.4); Phosphorus, Blood 3.6 mg/dL (2.5-4.9); Potassium, Blood 3.9 mmol/L (3.5-5.5); Sodium, Blood 140 mmol/L (136-145)
--- NOTE | 2022-05-28 06:38 | NUR ---
NO ACUTE CHANGES OVERNIGHT, PT RESTED WITH THE CPAP WITHOUT ISSUE
--- NOTE | 2022-05-28 18:15 | NUR ---
SHIFT SUMMARY PT A/OX 4. PT ABLE TO EXPRESS NEEDS. PT HR REMAINED A-FLUTTER IN THE 100-120'S THROUGHOUT SHIFT. DR TO CONSULT CARDIOLOGY ON 05/30/22 FOR CARDIOVERSION. PT SATS REMAINED STABLE IN THE 90'S WHEN PT IS AWAKE AND ON RA. PT APNEIC WHEN SLEEPING, SATS DROP TO 70-80'S BRIEFLY, RETURN TO 90'S QUICKLY. OTHER VSS THROUGHOUT SHIFT. NO REPORT OF CHEST PAIN/PRESSURE THROUGHOUT SHIFT. NO REPORT OF SOB/DYSPNEA THROUGHOUT SHIFT. PT INDEPENDENT IN ROOM. HEP GTT RUNNING PER EMAR.
[2022-05-29 03:58] LABS: Hematocrit 32.1 % (37.0-53.0); Hemoglobin 9.1 g/dL (13.5-17.5); Mean Corpuscular HGB 21.7 pg (26.0-34.0); Mean Corpuscular HGB Conc 28.3 g/dL (31.5-36.5); Mean Corpuscular Volume 77 fL (80-100); Mean Platelet Volume 9.8 fL (9.1-12.4); Platelet Count 295 K/mm3 (150-400); RDW Coefficient Variation 20.6 % (11.7-14.2); RDW Standard Deviation 56.2 fL (35.1-46.3); Red Blood Cell Count 4.19 M/mm3 (4.30-5.90); White Blood Cell Count 5.72 K/mm3 (4.00-11.30)
[2022-05-29 04:11] LABS: Anti-Xa UFH, PHA Monitoring 0.29 IU/mL; International Normalized Ratio 1.8; Prothrombin Time Results 18.2 Sec (9.7-11.5)
[2022-05-29 04:24] LABS: Albumin, Blood 3.4 g/dL (3.4-5.0); Anion Gap 1 mmol/L (6-16); Blood Urea Nitrogen 17 mg/dL (8-24); Bun/Creatinine Ratio 15.7 (12.0-20.0); CO2, Blood 31 mmol/L (21-32); Calcium, Blood 8.8 mg/dL (8.5-10.1); Chloride, Blood 104 mmol/L (98-108); Creatinine, Blood 1.08 mg/dL (0.60-1.20); Glomerular Filtration Rate 84 (60-); Glucose, Blood 118 mg/dL (70-99); Magnesium, Blood 2.4 mg/dL (1.6-2.4); Phosphorus, Blood 3.6 mg/dL (2.5-4.9); Sodium, Blood 136 mmol/L (136-145)
--- NOTE | 2022-05-29 17:58 | NUR ---
SHIFT SUMMARY ASSUMED CARE OF PT AT 0700. NO ACUTE CHANGES T/O THE SHIFT, PT IS AWAITING CARDIOVERSION IN AM. NPO AFTER MN. PT C/O NASAL CONGESTION AND "HEAD COLD." CLARITIN AND SALINE NASAL SPRAY GIVEN. PT HAS REMAINED ON HEPARIN T/O THE SHIFT WITH THERAPEUTIC LEVELS. PT REFUSES TO WEAR O2/CPAP WHEN SLEEPING, SPO2 NOTED TO DROP INTO THE 70s. PT IS NONCOMPLIANT WITH FR. ABLE TO USE CALL LIGHT FOR NEEDS, CALL LIGHT IN REACH, WILL CONTINUE TO MONITOR AND GIVE REPORT TO NOC SHIFT RN.
[2022-05-30 04:05] LABS: Hematocrit 31.8 % (37.0-53.0); Hemoglobin 9.1 g/dL (13.5-17.5); Mean Corpuscular HGB 21.6 pg (26.0-34.0); Mean Corpuscular HGB Conc 28.6 g/dL (31.5-36.5); Mean Corpuscular Volume 76 fL (80-100); Mean Platelet Volume 9.9 fL (9.1-12.4); Platelet Count 286 K/mm3 (150-400); RDW Coefficient Variation 20.3 % (11.7-14.2); RDW Standard Deviation 55.1 fL (35.1-46.3); Red Blood Cell Count 4.21 M/mm3 (4.30-5.90); White Blood Cell Count 5.37 K/mm3 (4.00-11.30)
[2022-05-30 04:21] LABS: Anti-Xa UFH, PHA Monitoring 0.41 IU/mL; International Normalized Ratio 1.92; Prothrombin Time Results 19.3 Sec (9.7-11.5)
[2022-05-30 04:37] LABS: Anion Gap 3 mmol/L (6-16); Blood Urea Nitrogen 18 mg/dL (8-24); Bun/Creatinine Ratio 16.4 (12.0-20.0); CO2, Blood 31 mmol/L (21-32); Chloride, Blood 102 mmol/L (98-108); Digoxin (Lanoxin) 0.52 ug/mL (0.80-2.00); Glomerular Filtration Rate 82 (60-); Glucose, Blood 119 mg/dL (70-99); Potassium, Blood 4.1 mmol/L (3.5-5.5); Sodium, Blood 136 mmol/L (136-145)
--- NOTE | 2022-05-30 05:05 | NUR ---
Assumed care of pt at 1900. A/Ox4, independent in room. Denies any pain. Maintains over 95% on CPAP with 4-5L bleed in. LS clear in RUL & RML and dim in RLL. OSWALDO and LLL dim. CODY. Dry nonproductive cough. Aflutter on tele 100-110. Denies any CP/pressure, VSS. 1+ edema in BLE. NPO since midnight. Patient slept most of the night with CPAP in place. No acute events, will report to daysomar FARR.
--- NOTE | 2022-05-30 07:20 | NUR ---
INITIAL ASSESSMENT: Patient is lying in bed supine resting with his eyes closed, easily awakens with assessment, he is alert and oriented x4. He denies pain at this time. HR irreg, he is still a-flutter in the low 100s, he states he does get sob with exertion while in flutter. Patient is NPO pending cardiology consult and possible cardioversion. LS Dim in the bases, biox is low 90s on RA, when asked patient states he does not want to wear his C-Pap at this time. BT+. PPP. Trace edema to BLE. VSS. AM meds given with a sip of water. Hep gtt infusing at 17u/kg/hr, patient is also on Coumadin until INR is theraputic, INR today is 1.92. Patient denies other needs at this time, call light in reach.
--- NOTE | 2022-05-30 14:30 | NUR ---
Update: Dr. Fulton at the bedside for cardiology consult. He discussed with the patient since his INR is theraputic the risk of Cardioversion is too high. He states he can get his INR theraputic and we can attempt Cardioversion as an outpatient. He told the patient he is cleared from cardiology. The patient verbalizes understanding. Dr. Fulton called the hospitalist team to let them know the plan.
[2022-05-30] MEDS ORDERED: WARF10 PO ×2 (15:31→15:32)
[2022-05-30] MEDS ORDERED: Allergy Relief10 M1 PO (15:32)
[2022-05-30] MEDS ORDERED: ENOX120I SC (15:36)
--- NOTE | 2022-05-30 16:30 | NUR ---
Discharge: Hosp team wrote discharge instructions. Patient verbalized understandin. Scripts faxed into [facility]. Patient is discharged to home via .
== END 2022-05-30 16:30 | disposition home or self-care (01) | DRG 308 ==
LOC: ER 01:16 → PCU 01:17
PROVIDERS: Family Medicine; Internal Medicine; Student in an Organized Health Care Education/Training Program; ADMIT Internal Medicine
PROC: 5A09357 Assistance with Respiratory Ventilation, Less than 24 Consecutive Hours, Continuous Positive Airway Pressure (ICD-10-PCS; principal; 2022-05-25)
DX: I48.0 Paroxysmal atrial fibrillation (principal); J96.21 Acute and chronic respiratory failure with hypoxia; N17.9 Acute kidney failure, unspecified; Z68.41 Body mass index [BMI] 40.0-44.9, adult; I50.42 Chronic combined systolic (congestive) and diastolic (congestive) heart failure; I11.0 Hypertensive heart disease with heart failure; I48.92 Unspecified atrial flutter; D63.8 Anemia in other chronic diseases classified elsewhere; G47.33 Obstructive sleep apnea (adult) (pediatric); R79.1 Abnormal coagulation profile; Z20.822 Contact with and (suspected) exposure to COVID-19; F15.10 Other stimulant abuse, uncomplicated; E78.5 Hyperlipidemia, unspecified; F43.10 Post-traumatic stress disorder, unspecified; E66.01 Morbid (severe) obesity due to excess calories; Z96.659 Presence of unspecified artificial knee joint; Z79.899 Other long term (current) drug therapy; Z79.01 Long term (current) use of anticoagulants; Z79.51 Long term (current) use of inhaled steroids; Z99.81 Dependence on supplemental oxygen; Z95.2 Presence of prosthetic heart valve; Z86.14 Personal history of Methicillin resistant Staphylococcus aureus infection; Z98.890 Other specified postprocedural states; Z91.14 Patient's other noncompliance with medication regimen
CPT/HCPCS: 0241U; 36415; 71046; 80048; 80053; 80069; 80162; 83735; 83880; 84484; 85025; 85027; 85520; 85610; 93005; 93010; 94640; 94660; 94664; 94762; 96365; 96366; 96375; 96376; 99285-25; A9270; G0378; J1160; J1644; J1940

== ENCOUNTER 2022-09-01 10:28 | Inpatient (IN) | payer OTHER ==
[2022-09-01] VITALS (23 sets, daily range): BP systolic 90–135; BP diastolic 57–103
[~2022-09-01] VITALS: Ht 180.3 cm; Wt 142.8 kg
[~2022-09-01 10:28] MED LIST changes: +Allergy Relief10 M1 PO; +WARF10 PO
[2022-09-01 11:07] LABS: BASOPHILS ABSOLUTE AUTO 0.03 K/mm3 (0.00-0.23); BASOPHILS PERCENT AUTO 0 % (0-2); EOSINOPHILS ABSOLUTE AUTO 0.09 K/mm3 (0.00-0.68); EOSINOPHILS PERCENT AUTO 1 % (0-6); Hematocrit 33.5 % (37.0-53.0); Hemoglobin 10.6 g/dL (13.5-17.5); IMMATURE GRAN ABSOLUTE AUTO 0.04 K/mm3 (0.00-0.10); IMMATURE GRAN PERCENT AUTO 1 % (0-1); LYMPHOCYTES ABSOLUTE AUTO 0.74 K/mm3 (0.84-5.20); LYMPHOCYTES PERCENT AUTO 11 % (21-46); MONOCYTES ABSOLUTE AUTO 0.56 K/mm3 (0.16-1.47); MONOCYTES PERCENT AUTO 8 % (4-13); Mean Corpuscular HGB 26.3 pg (26.0-34.0); Mean Corpuscular HGB Conc 31.6 g/dL (31.5-36.5); Mean Corpuscular Volume 83 fL (80-100); Mean Platelet Volume 9.4 fL (9.1-12.4); NEUTROPHILS ABSOLUTE AUTO 5.43 K/mm3 (1.96-9.15); NEUTROPHILS PERCENT AUTO 79 % (41-73); Platelet Count 305 K/mm3 (150-400); RDW Coefficient Variation 16.6 % (11.7-14.2); RDW Standard Deviation 49.2 fL (35.1-46.3); Red Blood Cell Count 4.03 M/mm3 (4.30-5.90); White Blood Cell Count 6.89 K/mm3 (4.00-11.30)
[2022-09-01 11:23] LABS: Albumin, Blood 3.3 g/dL (3.4-5.0); Bilirubin, Total 0.7 mg/dL (0.1-1.0); Bun/Creatinine Ratio 26.2 (12.0-20.0); Calcium, Blood 8.5 mg/dL (8.5-10.1); Creatinine, Blood 1.41 mg/dL (0.60-1.20); Globulin, Blood 3.4 g/dL (2.2-4.0); Potassium, Blood 3.6 mmol/L (3.5-5.5); Total Protein, Blood 6.7 g/dL (6.4-8.2)
[2022-09-01 11:33] LABS: International Normalized Ratio 1.78; Prothrombin Time Results 18.1 Sec (9.7-11.5)
[2022-09-01 13:21] LABS: PCO2 Arterial 48.3 mmHg (35-45); PO2 Arterial 60.3 mmHg (80-100)
[2022-09-01] MEDS ORDERED: ATOR40TA PO (14:53)
[2022-09-01] MEDS ORDERED: KLOR-CON 1010 ME9 PO (14:54)
[2022-09-01 16:21] LABS: U Amphetamine Screen DETECTED; U Barbituate Screen Not Detected; U Benzodiazapine Screen Not Detected; U Buprenorphine Screen Not Detected; U Cannabinoids Screen Not Detected; U Cocaine Screen Not Detected; U Methadone Screen Not Detected; U Methamphetamine Screen DETECTED; U Opiates Screen Not Detected; U Oxycodone Screen Not Detected; U Phencyclidine Screen Not Detected; U Propoxyphene Screen Not Detected
--- NOTE | 2022-09-01 17:01 | NUR ---
ADMISSION: Pt arrived to ICU room 4 at 1701. He awakens to voice and is oriented x 4. Pt on 2L NC.
[2022-09-01 17:41] LABS: Anti-Xa UFH, PHA Monitoring <0.10 IU/mL
--- NOTE | 2022-09-01 18:48 | NUR ---
SHIFT SUMMARY: Pt admitted to ICU from ED. Esmolol started with little effect. Heparin running. BIPAP started by RT; pt pulls off ad camille. His mother was at bedside during admission process and was updated on status and plan of care.
--- NOTE | 2022-09-01 21:00 | NUR ---
SHIFT UPDATE CALLED DR. VANEGAS TO DISCUSS PT HR AND RYTHYM. PT HAS REMAINEDIN AFLUTTER IN 11OS SINCE BEGINNING OF SHIFT EVEN WITH A 50MCG/KG/MIN INCREASE OF ESMOLOL. SPOKE TO DR. VANEGAS ABOUT THE CHOICE OF ESMOLOL WITH THE PT'S CURRENT RYTHYM IT WAS UNCERTIAN WHETHER OR NOT PT HAD RECIEVED ANY MEDICATIONS TO CONVERT. DR VANEGAS SAID HE WOULD REVIEW CHART. DR. ROSENBERG CAME TO THE FLOOR AND REPORTED THAT ESMOLOL WAS CHOSEN BECAUSE ER PHYSICIAN FELT CARDIZEM WOULD BE TOO HARD ON PT'S HEART WITH HIS LAST ECHO SHOWING AN EF OF 30-35%. DR. ABDALLA STATES HE IS OK WITH HEART STAYING IN AFLUTTER 110S FOR NOW UNTIL HE IS ABLE TO DO A FULL EVAL IN AM AND TO LEAVE ESMOLOL GTT AT 150 MCG/KG/MIN. PT ALSO HAS ECHO SCHEDULED FOR TOMORROW
[2022-09-01 21:46] LABS: Bun/Creatinine Ratio 23.4 (12.0-20.0); Calcium, Blood 8.3 mg/dL (8.5-10.1); Creatinine, Blood 1.41 mg/dL (0.60-1.20); Magnesium, Blood 1.9 mg/dL (1.6-2.4); Potassium, Blood 3.7 mmol/L (3.5-5.5)
--- NOTE | 2022-09-01 22:04 | NUR ---
ASSUMPTION OF CARE NOTE PT WATCHING MOVIE AT BEGINNING OF SHIFT APPEARS COMFORTABLE. ON HEPARIN GTT AT 15 UNITS/HR FOR A-FLUTTER AND SUB-THERAPUTIC INR. ESMOLOL AT 150 MCG/KG/HR WITH GOAL OF BPM<100. PT IS A&OX4. HR REMAINS IN 110S, TRACE EDEMA THROUGHOUTPT CURRENTLY SATS WELL ON RA WHEN AWAKE, CPAP AT NOC. DIMISHED/COARSE LUNG SOUNDS. USES URINAL APPRORIATELY WITH GOOD URINE OUTPUT. RECIEVED 160 MG OF LAXIS TODAY.
[2022-09-02] VITALS (46 sets, daily range): BP systolic 83–143; BP diastolic 50–126
[2022-09-02 03:44] LABS: Base Excess Venous 6 mmol/L; Bicarbonate Venous 29.2 mmol/L (24.0-30.0); PCO2 Venous 45.7 mmHg (38-42); pH Blood Venous 7.43 (7.34-7.37)
[2022-09-02 03:52] LABS: BASOPHILS ABSOLUTE AUTO 0.03 K/mm3 (0.00-0.23); BASOPHILS PERCENT AUTO 1 % (0-2); EOSINOPHILS ABSOLUTE AUTO 0.12 K/mm3 (0.00-0.68); EOSINOPHILS PERCENT AUTO 2 % (0-6); Hematocrit 31.8 % (37.0-53.0); Hemoglobin 9.8 g/dL (13.5-17.5); IMMATURE GRAN ABSOLUTE AUTO 0.02 K/mm3 (0.00-0.10); IMMATURE GRAN PERCENT AUTO 0 % (0-1); LYMPHOCYTES ABSOLUTE AUTO 0.76 K/mm3 (0.84-5.20); LYMPHOCYTES PERCENT AUTO 14 % (21-46); MONOCYTES PERCENT AUTO 7 % (4-13); Mean Corpuscular HGB 26.1 pg (26.0-34.0); Mean Corpuscular HGB Conc 30.8 g/dL (31.5-36.5); Mean Corpuscular Volume 85 fL (80-100); Mean Platelet Volume 9.4 fL (9.1-12.4); NEUTROPHILS ABSOLUTE AUTO 4.05 K/mm3 (1.96-9.15); NEUTROPHILS PERCENT AUTO 75 % (41-73); Platelet Count 266 K/mm3 (150-400); RDW Coefficient Variation 16.2 % (11.7-14.2); RDW Standard Deviation 49.7 fL (35.1-46.3); Red Blood Cell Count 3.76 M/mm3 (4.30-5.90); White Blood Cell Count 5.38 K/mm3 (4.00-11.30)
[2022-09-02 04:18] LABS: Albumin, Blood 2.9 g/dL (3.4-5.0); Albumin/Globulin Ratio 0.9 (0.8-1.8); Bilirubin, Total 0.7 mg/dL (0.1-1.0); Calcium, Blood 8.4 mg/dL (8.5-10.1); Creatinine, Blood 1.41 mg/dL (0.60-1.20); Globulin, Blood 3.1 g/dL (2.2-4.0); Potassium, Blood 4.2 mmol/L (3.5-5.5)
--- NOTE | 2022-09-02 04:25 | NUR ---
SHIFT SUMMARY NO ACUTE CHANGES OVERNIGHT. ESMOLOL REMAINED AT 150 MCG/KG/MIN FOR MAJORITY OF SHIFT WITH PT IN AFLUTTER AT RATE OF [address] RATE OK PER [address]. ROSENBERG. NO RATE CHANGE TO HEPARIN GTT BP STABLE. PT SWITCHED TO BIPAP OVERNIGHT AT 14/10 40% FIO2 WITH MUCH BETTER SUCCESS THAN CPAP. GOOD URINE OUTPUT THIS SHIFT. PT REPORTS HE WAS ABLE TO GET SOME GOOD SLEEP OVERNIGHT. PLAN FOR ECHO TODAY
--- NOTE | 2022-09-02 09:28 | NUR ---
AM NOTE... ASSUMED CARE OF PT AT 0700. HE IS A&Ox4. ON BIPAP AT 14/10 AND 40% FIO2 WITH O2 SATS >95% L/S DIM IN THE UPPER LOBES COARSE CRACKELS NOTED IN THE BASES. EVEN ON THE BIPAP THE PT IS HAVING APNEIC PERIODS. HE IS IN AFLUTTER IN 110-115. BP IS STABLE WITH MAPS >65. ESMOLOL GTT IS RUNNING AT 150MCG/KG/HR. PT DENIES CHEST PAIN/PRESSURE. PT APPEARES SOB BUT DENIES FEELING SOB AT THIS TIME. TRACE EDEMA IS NOTED TO HIS BLE. CALL LIGHT IN REACH WILL CONTINUE TO MONITOR.
--- NOTE | 2022-09-02 14:02 | NUR ---
PT UPDATE.... PT REFUSING TURNS IN THE BED, PT IS SHIFTING HIMSELF AROUND THE BED INDEPENDENTLY BUT CONTINUES TO REFUSE SIDE TO SIDE TURNS. PT IS CURRENTLY NPO FOR A MADONNA AND POSSIBLE CARDIOVERSION THIS EVENING. PT HAS BEEN NPO SINCE APROX 0830. WILL CONTINUE TO MONITOR.
--- NOTE | 2022-09-02 17:23 | NUR ---
SHIFT SUMMARY.... NO ACUTE NEGATIVE CHANGES NOTED THIS SHIFT. PT DENIES ANY CHEST PAIN. PT CONTINUES ON THE ESMOLOL DRIP AT 150MCG/KG WITH HR IN THE 110'S-115 AFLUTTER. PT'S BP IS STABLE. PT IS ON THE BIPAP WHILE SLEEPING AND ON 2L NC WHILE AWAKE. PT HAS BEEN NPO FOR A MADONNA AND POSSIBLE CARDIOVERSION THIS EVENING. PT HAS BEEN USING THE URINAL INDEPENDENTLY WHILE IN BED. NO BM THIS SHIFT. CALL LIGHT IN REACH WILL CONTINUE TO MONITOR UNTIL REPORT IS GIVEN TO ON COMING RN.
--- NOTE | 2022-09-02 19:22 | NUR ---
MADONNA/CARDIOVERSION.... PT HAD A MADONNA AND CARDIOVERSION (SEE DR. ROSENBERG AND ANESTHESIA NOTES) MADONNA WAS NEGATIVE FOR ANY THROMBUS, PT HAD A SYNCRONIZED CARDIOVERSION AT 150 FELIPE WITH ONE SHOCK DELIVERED. PT CONVERTED TO SR IN THE 70'S BP WAS STABLE. PT WAS PLACED ON BIPAP TO RECOVER. REPORT WAS GIVEN TO DAMIAN HAGER RN.
--- NOTE | 2022-09-02 20:45 | NUR ---
ASSUMED CARE I ASSUMED PATIENT AT 1900 FROM CHIKA ROCHE. AT TIME OF REPORT MADONNA AND ELECTROCARDIOVERSION BEING PERFORMED. PATIENT NOW ALERT AND ORIENTED WITH HR 100-110 BPM SR W/ OCCASSIONAL PVC'S. BP STABLE. TOLERATING NC @ 1LPM WELL WITH SPO2 HIGH 90'S. FAMILY AT BEDSIDE AFTER PROCEDURE AND UPDATE PROVIDED. ESMOLOL GTT DISCONTINUED AND HEPARIN INF CONTINUES. BEDSIDE REPORT COMPLETED.
--- NOTE | 2022-09-03 03:25 | NUR ---
TRANSFER BEDSIDE REPORT RECEIVED FROM BOLT SORTER. PATIENT ALERT, ORIENTED, MAKES NEEDS KNOWN TO STAFF. ABLE TO TRANSFER SELF FROM ICU WHEELCHAIR TO PCU BED. VITALS STABLE, ON 2L NC WITH O2 SAT MID 90s, BIPAP AT BEDSIDE FOR WHEN PATIENT IS SLEEPING. PATIENT REQUESTING SHOWER. NO OTHER NEEDS AT THIS TIME.
[2022-09-03 03:35] VITALS: BP 112/80
[2022-09-03 04:49] LABS: BASOPHILS ABSOLUTE AUTO 0.02 K/mm3 (0.00-0.23); BASOPHILS PERCENT AUTO 0 % (0-2); EOSINOPHILS ABSOLUTE AUTO 0.09 K/mm3 (0.00-0.68); EOSINOPHILS PERCENT AUTO 1 % (0-6); Hematocrit 32.3 % (37.0-53.0); Hemoglobin 9.8 g/dL (13.5-17.5); IMMATURE GRAN ABSOLUTE AUTO 0.02 K/mm3 (0.00-0.10); IMMATURE GRAN PERCENT AUTO 0 % (0-1); LYMPHOCYTES ABSOLUTE AUTO 0.67 K/mm3 (0.84-5.20); LYMPHOCYTES PERCENT AUTO 9 % (21-46); MONOCYTES ABSOLUTE AUTO 0.53 K/mm3 (0.16-1.47); MONOCYTES PERCENT AUTO 7 % (4-13); Mean Corpuscular HGB Conc 30.3 g/dL (31.5-36.5); Mean Corpuscular Volume 86 fL (80-100); Mean Platelet Volume 9.9 fL (9.1-12.4); NEUTROPHILS ABSOLUTE AUTO 5.98 K/mm3 (1.96-9.15); NEUTROPHILS PERCENT AUTO 82 % (41-73); Platelet Count 301 K/mm3 (150-400); RDW Coefficient Variation 16.3 % (11.7-14.2); RDW Standard Deviation 51.1 fL (35.1-46.3); Red Blood Cell Count 3.77 M/mm3 (4.30-5.90); White Blood Cell Count 7.31 K/mm3 (4.00-11.30)
[2022-09-03 05:00] LABS: Albumin, Blood 3.1 g/dL (3.4-5.0); Anion Gap 5 mmol/L (6-16); Blood Urea Nitrogen 22 mg/dL (8-24); Bun/Creatinine Ratio 13.7 (12.0-20.0); CO2, Blood 31 mmol/L (21-32); Calcium, Blood 8.2 mg/dL (8.5-10.1); Chloride, Blood 105 mmol/L (98-108); Creatinine, Blood 1.61 mg/dL (0.60-1.20); Glomerular Filtration Rate 51 (60-); Glucose, Blood 125 mg/dL (70-99); Phosphorus, Blood 4.1 mg/dL (2.5-4.9); Potassium, Blood 3.9 mmol/L (3.5-5.5); Sodium, Blood 141 mmol/L (136-145)
--- NOTE | 2022-09-03 06:04 | NUR ---
SHIFT SUMMARY PATIENT ALERT AND ORIENTED. ABLE TO MAKE NEEDS KNOWN TO STAFF. VITALS STABLE, PATIENT RESTING ON BIPAP, SPO2 >93%. ABLE TO SHOWER INDEPENDENTLY UPON TRANSFER. NO OTHER CHANGES SINCE TRANSFER NOTE. WILL REPORT TO DAY SHIFT RN.
[2022-09-03 08:01] VITALS: BP 112/81
[2022-09-03 10:19] LABS: International Normalized Ratio 1.21; Prothrombin Time Results 12.6 Sec (9.7-11.5)
--- NOTE | 2022-09-03 13:16 | NUR ---
ASSUMED CARE: PT TRANSFERRED TO 334 FROM PCU. REPORT RECIEVED FROM CHIKA SPANGLER. PT ON TELE, CURRENTLY NSR AT 89. HEPARIN GTT RUNNING AND VERIFIED TO EMAR. CALL LIGHT IN REACH. RT AT BEDSIDE SETTING UP BIPAP. NO ACUTE NEEDS OR CONCERNS AT THIS TIME.
[2022-09-03 15:18] VITALS: BP 125/90
--- NOTE | 2022-09-03 18:24 | NUR ---
SHIFT SUMMARY: PT INDEPENDENT IN ROOM. TELE IN PLACE AT [facility]. STRINGING MACHINE TENDER STATED THAT PT HAD A RUN OF SECOND DEGREE HB WHERE HR DROPPED INTO 30S BUT DID NOT SUSTAIN. HEPARIN GTT RUNNING PER ORDERS. MOTHER AT BEDSIDE AND HAS BEEN GIVEN UPDATES. NO ACUTE NEEDS OR CONCERNS AT THIS TIME.
[2022-09-03 19:41] VITALS: BP 128/87
--- NOTE | 2022-09-04 04:19 | NUR ---
SHIFT SUMMARY A/O CALLS APPROPRIATE. SPOKE WITH PT ABOUT FLUID OVERLOAD AND MONITORING INTAKE AND OUTPUT. RT IN TO PLACE CPAP ON PT, ZACHARY WELL NO S/S OF DISTRESS.
[2022-09-04 04:30] VITALS: BP 108/90
[2022-09-04 05:49] LABS: BASOPHILS ABSOLUTE AUTO 0.02 K/mm3 (0.00-0.23); BASOPHILS PERCENT AUTO 0 % (0-2); EOSINOPHILS PERCENT AUTO 2 % (0-6); Hematocrit 32.2 % (37.0-53.0); Hemoglobin 9.9 g/dL (13.5-17.5); IMMATURE GRAN ABSOLUTE AUTO 0.03 K/mm3 (0.00-0.10); IMMATURE GRAN PERCENT AUTO 1 % (0-1); LYMPHOCYTES PERCENT AUTO 14 % (21-46); MONOCYTES ABSOLUTE AUTO 0.48 K/mm3 (0.16-1.47); MONOCYTES PERCENT AUTO 9 % (4-13); Mean Corpuscular HGB 26.1 pg (26.0-34.0); Mean Corpuscular HGB Conc 30.7 g/dL (31.5-36.5); Mean Corpuscular Volume 85 fL (80-100); Mean Platelet Volume 9.9 fL (9.1-12.4); NEUTROPHILS ABSOLUTE AUTO 4.21 K/mm3 (1.96-9.15); NEUTROPHILS PERCENT AUTO 75 % (41-73); Platelet Count 273 K/mm3 (150-400); RDW Coefficient Variation 16.2 % (11.7-14.2); RDW Standard Deviation 50.4 fL (35.1-46.3); Red Blood Cell Count 3.79 M/mm3 (4.30-5.90); White Blood Cell Count 5.64 K/mm3 (4.00-11.30)
[2022-09-04 06:00] LABS: Anti-Xa UFH, PHA Monitoring 0.3 IU/mL; International Normalized Ratio 1.11; Prothrombin Time Results 11.6 Sec (9.7-11.5)
[2022-09-04 06:16] LABS: Albumin, Blood 3.2 g/dL (3.4-5.0); Anion Gap 4 mmol/L (6-16); Blood Urea Nitrogen 22 mg/dL (8-24); Bun/Creatinine Ratio 16.4 (12.0-20.0); CO2, Blood 33 mmol/L (21-32); Calcium, Blood 8.3 mg/dL (8.5-10.1); Chloride, Blood 102 mmol/L (98-108); Creatinine, Blood 1.34 mg/dL (0.60-1.20); Glomerular Filtration Rate 64 (60-); Glucose, Blood 115 mg/dL (70-99); Phosphorus, Blood 3.5 mg/dL (2.5-4.9); Potassium, Blood 3.8 mmol/L (3.5-5.5); Sodium, Blood 139 mmol/L (136-145)
[2022-09-04 07:36] VITALS: BP 134/93
[2022-09-04 16:01] VITALS: BP 106/68
--- NOTE | 2022-09-04 18:48 | NUR ---
SHIFT SUMMARY: Pt remained A&O X3 this shift. Denies pain. VSS. LSCTA, diminished. cpap with sleep, RA while awake with 02 sat 93-95% wiht continuous pulse ox. voiding per urinal. IV Heparing gtt infusing 34.7ml/hr without interuption. Coumadin given. No further needs at this time.
[2022-09-04 19:30] VITALS: BP 122/86
--- NOTE | 2022-09-05 04:20 | NUR ---
SHIFT SUMMARY PT EXCITED TO GO HOME, BUT HAS NEW PAIN TO BACK, STATES ITS CHRONIC PAIN. MEDICATED FOR PAIN. PT AGAIN DE-SATS ON BIPAP, REAJUSTED MASK AND INCREASED O2 NOW STABLE WITH O2 IN THE LOW 90S.
[2022-09-05 04:53] VITALS: BP 126/90
[2022-09-05 06:01] LABS: Hematocrit 32.8 % (37.0-53.0); Platelet Count 284 K/mm3 (150-400)
[2022-09-05 06:14] LABS: Anti-Xa UFH, PHA Monitoring 0.3 IU/mL; International Normalized Ratio 1.24; Prothrombin Time Results 12.9 Sec (9.7-11.5)
[2022-09-05 06:21] LABS: Albumin, Blood 3.3 g/dL (3.4-5.0); Anion Gap 5 mmol/L (6-16); Blood Urea Nitrogen 25 mg/dL (8-24); Bun/Creatinine Ratio 17.1 (12.0-20.0); CO2, Blood 32 mmol/L (21-32); Calcium, Blood 8.7 mg/dL (8.5-10.1); Chloride, Blood 103 mmol/L (98-108); Creatinine, Blood 1.46 mg/dL (0.60-1.20); Glomerular Filtration Rate 58 (60-); Glucose, Blood 127 mg/dL (70-99); Potassium, Blood 4.3 mmol/L (3.5-5.5); Sodium, Blood 140 mmol/L (136-145)
[2022-09-05 07:34] VITALS: BP 131/97
[2022-09-05 15:30] VITALS: BP 115/88
--- NOTE | 2022-09-05 18:07 | NUR ---
SHIFT SUMMARY PT IS ALERT AND ORIENTED X4. INDEPENDENT IN THE ROOM. HEP DRIP. PT ANXIOUS TO LEAVE TODAY BUT UNDERSTANDS WHY THINKS IT IS SAFER TO STAY. SWITCHING FROM 2LNC AND 5L BIPAP THROUGHOUT DAY. WILL DESAT INTO 70S WHEN SLEEPING WITHOUT BIPAP. NO QUESTIONS FROM PT AT THIS TIME.
[2022-09-05 19:35] VITALS: BP 115/84
[2022-09-06 00:06] LABS: Hematocrit 33.6 % (37.0-53.0); Hemoglobin 10.5 g/dL (13.5-17.5)
[2022-09-06 00:14] LABS: Albumin, Blood 3.3 g/dL (3.4-5.0); Anion Gap 4 mmol/L (6-16); Blood Urea Nitrogen 23 mg/dL (8-24); CO2, Blood 35 mmol/L (21-32); Calcium, Blood 9.1 mg/dL (8.5-10.1); Chloride, Blood 99 mmol/L (98-108); Creatinine, Blood 1.44 mg/dL (0.60-1.20); Glomerular Filtration Rate 59 (60-); Glucose, Blood 136 mg/dL (70-99); Phosphorus, Blood 4.2 mg/dL (2.5-4.9); Sodium, Blood 138 mmol/L (136-145)
[2022-09-06 00:22] LABS: Anti-Xa UFH, PHA Monitoring 0.43 IU/mL; International Normalized Ratio 1.51; Prothrombin Time Results 15.5 Sec (9.7-11.5)
--- NOTE | 2022-09-06 04:14 | NUR ---
SHIFT SUMMERY, PT UP SEVERAL TIMES TO BR, PT HAS ON BIPAP. PTS LABS DRAWN FOR HIS PT INR, RATE REMAINS THE SAME 19U/KG/HR, 38.8 ML/HR. PT REYING TO SLEEP AT THIS TIME. CALL LIGHT IN REACH.
[2022-09-06 04:31] VITALS: BP 128/87
[2022-09-06 07:16] LABS: Hematocrit 33.3 % (37.0-53.0); Hemoglobin 10.3 g/dL (13.5-17.5); Mean Platelet Volume 9.1 fL (9.1-12.4); Platelet Count 275 K/mm3 (150-400)
[2022-09-06 07:29] VITALS: BP 130/83
[2022-09-06 07:33] LABS: Anti-Xa UFH, PHA Monitoring 0.5 IU/mL
[2022-09-06 08:10] LABS: International Normalized Ratio 1.58; Prothrombin Time Results 16.2 Sec (9.7-11.5)
[2022-09-06] MEDS ORDERED: Carvedilol12.5 MG PO (11:47)
[2022-09-06] MEDS ORDERED: JARDIANCE25 MG PO (11:47)
[2022-09-06] MEDS ORDERED: SPIR25 PO (11:48)
[2022-09-06] MEDS ORDERED: ENOXAPARIN150 MG/1 M SC (11:48)
--- NOTE | 2022-09-06 14:28 | NUR ---
DISCHARAGE SUMMARY PATIENT DENIES ANY SHORTNESS OF BREATH OR CHEST PAIN TODAY. 1+ EDEMA TO MID MEDEROS. QUESTIONS ANSWERED, CONSENTS SIGNED, EDUCATION AND MEDICATION INFORMATION PACKETS PROVIDED PATIENT AND PATIENT LEFT FLOOR AT 1245 ON 09/06/22 VIA WHEELCHAIR WITH DEWAYNE ELIZONDO AND LEFT TO PARKING LOT WITH MOTHER WHO IS ASSISTANT TO THE DEAN FOR PATIENT.
== END 2022-09-06 12:48 | disposition home or self-care (01) | DRG 291 ==
LOC: ER 10:28 → ICUE 16:56 → PCU 09-03 03:00 → MEDS 09-03 13:17
PROVIDERS: Emergency Medicine; Family Medicine; Internal Medicine Cardiovascular Disease; Physician Assistant; Student in an Organized Health Care Education/Training Program; ADMIT Internal Medicine
PROC: 4A033R1 Measurement of Arterial Saturation, Peripheral, Percutaneous Approach (ICD-10-PCS; 2022-09-02)
PROC: 5A2204Z Restoration of Cardiac Rhythm, Single (ICD-10-PCS; 2022-09-02)
PROC: B24BZZ4 Ultrasonography of Heart with Aorta, Transesophageal (ICD-10-PCS; 2022-09-02)
PROC: 5A09357 Assistance with Respiratory Ventilation, Less than 24 Consecutive Hours, Continuous Positive Airway Pressure (ICD-10-PCS; principal; 2022-09-06)
DX: I13.0 Hypertensive heart and chronic kidney disease with heart failure and stage 1 through stage 4 chronic kidney disease, or unspecified chronic kidney disease (principal); I50.43 Acute on chronic combined systolic (congestive) and diastolic (congestive) heart failure; J96.01 Acute respiratory failure with hypoxia; I48.92 Unspecified atrial flutter; Z68.41 Body mass index [BMI] 40.0-44.9, adult; D63.1 Anemia in chronic kidney disease; I44.1 Atrioventricular block, second degree; N18.30 Chronic kidney disease, stage 3 unspecified; I48.0 Paroxysmal atrial fibrillation; F32.A Depression, unspecified; G47.33 Obstructive sleep apnea (adult) (pediatric); E78.5 Hyperlipidemia, unspecified; G25.81 Restless legs syndrome; E66.01 Morbid (severe) obesity due to excess calories; F43.10 Post-traumatic stress disorder, unspecified; F15.10 Other stimulant abuse, uncomplicated; Z91.148 Patient's other noncompliance with medication regimen for other reason; Z86.79 Personal history of other diseases of the circulatory system; Z86.14 Personal history of Methicillin resistant Staphylococcus aureus infection; Z79.02 Long term (current) use of antithrombotics/antiplatelets; Z79.51 Long term (current) use of inhaled steroids; Z79.899 Other long term (current) drug therapy; Z95.2 Presence of prosthetic heart valve; Z98.890 Other specified postprocedural states; Z91.199 Patient's noncompliance with other medical treatment and regimen due to unspecified reason; Z99.81 Dependence on supplemental oxygen
CPT/HCPCS: 36415; 36600; 71046; 80048; 80053; 80069; 82803; 82947; 83735; 83880; 84443; 84484; 85014; 85018; 85025; 85049; 85520; 85610; 85730; 92960; 93005; 93010; 93312; 93325; 94660; 94761; 94762; 96374-59; 99285-25; A9270; C8929; J1644; J1650; J1940; J2250; J2704; J7030; Q9957

== ENCOUNTER 2024-02-20 00:13 | Inpatient (IN) | payer OTHER ==
[~2024-02-20] VITALS: Ht 170.2 cm; Wt 135.0 kg
[~2024-02-20 00:13] MED LIST changes: +ATOR40TA PO; +CARV25 PO; +ENOXAPARIN150 MG/1 M SC; +JARDIANCE25 MG PO; +KLOR-CON 1010 ME9 PO; +SPIR25 PO
[2024-02-20 02:02] LABS: Albumin, Blood 3.1 g/dL (3.4-5.0); Albumin/Globulin Ratio 0.9 (0.8-1.8); Bilirubin, Total 0.8 mg/dL (0.1-1.0); Calcium, Blood 8.8 mg/dL (8.5-10.1); Creatinine, Blood 1.81 mg/dL (0.60-1.20); Globulin, Blood 3.3 g/dL (2.2-4.0); Potassium, Blood 4.1 mmol/L (3.5-5.5); Total Protein, Blood 6.4 g/dL (6.4-8.2)
[2024-02-20 02:06] LABS: BASOPHILS ABSOLUTE AUTO 0.04 K/mm3 (0.00-0.23); BASOPHILS PERCENT AUTO 0 % (0-2); EOSINOPHILS ABSOLUTE AUTO 0.07 K/mm3 (0.00-0.68); EOSINOPHILS PERCENT AUTO 1 % (0-6); Hematocrit 31.3 % (37.0-53.0); Hemoglobin 8.8 g/dL (13.5-17.5); IMMATURE GRAN ABSOLUTE AUTO 0.07 K/mm3 (0.00-0.10); IMMATURE GRAN PERCENT AUTO 1 % (0-1); LYMPHOCYTES ABSOLUTE AUTO 1.05 K/mm3 (0.84-5.20); LYMPHOCYTES PERCENT AUTO 12 % (21-46); MONOCYTES ABSOLUTE AUTO 0.54 K/mm3 (0.16-1.47); MONOCYTES PERCENT AUTO 6 % (4-13); Mean Corpuscular HGB Conc 28.1 g/dL (31.5-36.5); Mean Corpuscular Volume 78 fL (80-100); Mean Platelet Volume 9.7 fL (9.1-12.4); NEUTROPHILS ABSOLUTE AUTO 7.13 K/mm3 (1.96-9.15); NEUTROPHILS PERCENT AUTO 80 % (41-73); Platelet Count 275 K/mm3 (150-400); RDW Coefficient Variation 18.5 % (11.7-14.2); RDW Standard Deviation 51.9 fL (35.1-46.3)
[2024-02-20] MEDS ORDERED: Metoprolol Tartrate 1 MG/ML 5 ML VIAL IV ONE (02:20)
[2024-02-20 02:45] LABS: International Normalized Ratio 2.24; Prothrombin Time Results 22.6 Sec (9.7-11.5)
[2024-02-20] MEDS ORDERED: Metoprolol Tartrate 1 MG/ML 5 ML VIAL IV PRN (04:50)
[2024-02-20] MEDS ORDERED: FLU VACC TS2024-25(6MOS UP)/PF 45 MCG/0.5 ML SYRINGE IM ONE (04:55)
[2024-02-20] MEDS ORDERED: Carvedilol 6.25 MG Tab PO SCH (08:00)
[2024-02-20 08:04] VITALS: BP 97/82
[2024-02-20] MEDS ORDERED: DAPAGLIFLOZIN10 MG PO (08:21)
[2024-02-20] MEDS ORDERED: WARF5 PO (08:23)
[2024-02-20] MEDS ORDERED: LORA10ER PO (08:25)
[2024-02-20] MEDS ORDERED: Empagliflozin 25 MG TAB PO SCH (09:00)
[2024-02-20] MEDS ORDERED: Atorvastatin 40 MG Tab PO SCH (09:00)
[2024-02-20] MEDS ORDERED: Empagliflozin 10 MG TAB PO SCH (09:00)
[2024-02-20] MEDS ORDERED: Furosemide 40 MG Tab PO SCH (09:00)
[2024-02-20] MEDS ORDERED: Metoprolol Tartrate 50 MG Tab PO SCH (09:00)
[2024-02-20] MEDS ORDERED: Spironolactone 25 MG Tab PO SCH (09:00)
[2024-02-20] MEDS ORDERED: Furosemide 10 MG/ML 4ML Vial IV SCH (12:00)
[2024-02-20 12:18] VITALS: BP 90/67
[2024-02-20 13:19] VITALS: BP 98/83
--- NOTE | 2024-02-20 14:57 | NUR ---
ASSUMPTION OF CARE RECIEVED REPORT FROM ROGER WATKINS RN. PT ARRIVED TO PCU VIA ER JUAN. PT AMBULATED FROM ER RWIDEN TO PCU BED. PT IS UNABLE TO STAY AWAKE, DOZES OFF WHILE CONVERSATING, PER PT THIS IS NORMAL FOR HIM. HE IS ORIENTED X4. ON TELE, AFLUTTER, HR RANGING FROM 90'S-150'S, DENIES CP/PRESSURE, NUMB/TINGLING, BLOOD PRESSURES ARE SOFT IN THE MID 90'S-100'S. L/S DIM T/O, PT ALTERNATING BETWEEN BIPAP AND 1-4L VIA NC. PT DESATS FREQUENTLY TO THE 70'S-80S, HE REPORTS HOME O2 USE NEEDED VIA HIS CPAP MACHINE, HOSPITAL BIPAP SETUP IN ROOM AND SITTING AT BEDSIDE. +BS, PT DENIES PAIN/TENDER. URINAL AT BEDSIDE. PT WITH EDEMA OF FEET, BLE, AND GENRALIZED. HE HAS CRACKS ON THE SOLES OF FEET, HE REPORTS THIS HAPPENS FREQUENTLY FOR HIM. CARDIOLOGY TO BEDSIDE TO DISCUSS PLAN OF CARE. PT TO GET MADONNA AND POSSIBLE CARDIOVERSION. PT WILL BE NPO. PT DENIES QUESTIONS AT THIS TIME. WILL CONTINUE TO MONITOR.
[2024-02-20] MEDS ORDERED: Phenylephrine HCl 40 MCG/ML-NS 10MLSYR (0.4MG/ML) IV ONE (15:41)
[2024-02-20] MEDS ORDERED: Etomidate 2MG / ML 10ML Vial IV ONE (15:41)
[2024-02-20] MEDS ORDERED: Propofol 10mg/ml 20 ml Vial (Procedural) IV ONE (15:41)
[2024-02-20 15:44] VITALS: BP 87/73
[2024-02-20 17:32] VITALS: BP 110/86
[2024-02-20] MEDS ORDERED: Warfarin Sodium 5 MG Tab PO SCH (18:00)
--- NOTE | 2024-02-20 18:10 | NUR ---
SHIFT SUMMARY PT DOZES OFF WHILE HAVING CONVERSATIONS, UNABLE TO STAY AWAKE FOR LONG. HE IS ORIENTED TO ALL. ON TELE AFIB IN THE 80'S-140'S, SOFT PRESSURE IN THE 100'S. PT REPORTED AN ACHING CHEST PAIN A 4/10, HE REPORTED IT ONLY LASTED A FEW MINUTES BUT HAD NEVER HAD THIS PAIN BEFORE. EKG COMPLETED, VSS. CALL PLACED TO PROVIDER TO UPDATE HIM, TROPONIN ORDERED. PT TROPONIN TRENDING DOWNWARD FROM LAST LAB DRAW. PT ON 1L VIA NC, O2 >92%. PT OCASSIONALLY DESATS INTO THE 70'S-80'S. PT HAS BIPAP AT BEDSIDE, REPORTS HOME USE OF CPAP. EDUCATED PT ON IMPORTANCE OF MONITORING STRICT I'S AND O'S, PROVIDED URINAL AT BEDSIDE AND HAT IN TOILET. PT HAS NO USED URINAL OR HAT BUT HAS URINATED, REITERATED IMPORTANC EOF USING HAT/URINAL FOR ACCURATE OUTPUT MONITORING. UNABLE TO COLLECT URINE SAMPLE DUE TO PT NOT USING URINAL. PT WILL REMAIN NPO AFTER MIDNIGHT FOR MADONNA AND POSSIBLE CARDIOVERSION TOMORROW. PT UP TO RECLINER T/O SHIFT. HE DENIED ANY QUESTIONS OR CONCERNS AT THIS TIME. WILL CONTINUE TO MONITOR AND REPORT TO IT ARCHITECT RN.
[2024-02-20 20:30] VITALS: BP 109/83
[2024-02-20 22:03] LABS: U Amphetamine Screen DETECTED; U Barbituate Screen Not Detected; U Benzodiazapine Screen Not Detected; U Buprenorphine Screen Not Detected; U Cannabinoids Screen Not Detected; U Cocaine Screen Not Detected; U Methadone Screen Not Detected; U Methamphetamine Screen DETECTED; U Opiates Screen Not Detected; U Oxycodone Screen Not Detected; U Phencyclidine Screen Not Detected
[2024-02-20] MEDS ORDERED: Ondansetron HCl 2 MG / ML 2ML Vial IV PRN (22:30)
[2024-02-21] VITALS (7 sets, daily range): BP systolic 92–111; BP diastolic 75–93
[2024-02-21 04:46] LABS: BASOPHILS ABSOLUTE AUTO 0.03 K/mm3 (0.00-0.23); BASOPHILS PERCENT AUTO 0 % (0-2); EOSINOPHILS ABSOLUTE AUTO 0.07 K/mm3 (0.00-0.68); EOSINOPHILS PERCENT AUTO 1 % (0-6); Hematocrit 31.6 % (37.0-53.0); IMMATURE GRAN ABSOLUTE AUTO 0.06 K/mm3 (0.00-0.10); IMMATURE GRAN PERCENT AUTO 1 % (0-1); LYMPHOCYTES ABSOLUTE AUTO 0.89 K/mm3 (0.84-5.20); LYMPHOCYTES PERCENT AUTO 10 % (21-46); MONOCYTES ABSOLUTE AUTO 0.53 K/mm3 (0.16-1.47); MONOCYTES PERCENT AUTO 6 % (4-13); Mean Corpuscular HGB 21.7 pg (26.0-34.0); Mean Corpuscular HGB Conc 28.5 g/dL (31.5-36.5); Mean Corpuscular Volume 76 fL (80-100); NEUTROPHILS ABSOLUTE AUTO 7.73 K/mm3 (1.96-9.15); NEUTROPHILS PERCENT AUTO 83 % (41-73); Platelet Count 280 K/mm3 (150-400); RDW Coefficient Variation 18.6 % (11.7-14.2); RDW Standard Deviation 49.9 fL (35.1-46.3); Red Blood Cell Count 4.15 M/mm3 (4.30-5.90); White Blood Cell Count 9.31 K/mm3 (4.00-11.30)
[2024-02-21 04:56] LABS: International Normalized Ratio 2.22; Prothrombin Time Results 22.4 Sec (9.7-11.5)
[2024-02-21 05:03] LABS: Albumin, Blood 3.1 g/dL (3.4-5.0); Albumin/Globulin Ratio 0.9 (0.8-1.8); Bilirubin, Total 0.9 mg/dL (0.1-1.0); Bun/Creatinine Ratio 24.5 (12.0-20.0); Calcium, Blood 9.4 mg/dL (8.5-10.1); Creatinine, Blood 1.55 mg/dL (0.60-1.20); Globulin, Blood 3.3 g/dL (2.2-4.0); Potassium, Blood 4.3 mmol/L (3.5-5.5); Total Protein, Blood 6.4 g/dL (6.4-8.2)
--- NOTE | 2024-02-21 05:19 | NUR ---
A/O x4. PT RESTLESS THROUGHOUT SHIFT. CONTINUOSLY SWITCHES FROM BIPAP TO NC. DESATS FREQUENTLY BUT RECOVERS WITHIN A FEW MINUTES. REFUSES BED ALARM. GETS UP TO RESTROOM WITHOUT CALLING, REGARDLESS OF REPEATEDLY EDUCATING PT ON CALLING BEFORE GETTING OOB. DENIED PAIN. SUPPOSED TO BE NPO AFTER MIDNIGHT, BUT TWICE, PT WALKED TO BATHROOM AND WAS DRINKING WATER FROM [employer]. WITNESSED BY STAFF, DENIED WHEN ASKED. WEIGHED W/ BED SCALE; PT REFUSED TO STAND TO USE STANDING SCALE.
[2024-02-21] MEDS ORDERED: propofoL 40 ML IV ONE (06:47)
--- NOTE | 2024-02-21 17:49 | NUR ---
SHIFT SUMMARY PT ORIENTED X4, HE DOZES OFF WHILE TALKING. HR IN THE 90'S-150'S, HR INCREASES WITH EXERTION, SBP IN THE 90'S-100'S, DENIES CP/PRESSURE T/O SHIFT. PT ALTERNATING BETWEEN NC AND BIPAP MACHINE. 02 IN THE 90'S WITH OCASSIONAL DESATS TO THE 80'S, PT RECOVERS QUICKLY. PT REMAINED NPO T/O SHIFT FOR MADONNA/CARDIOVERSION. PT AND VISITORS EXPRESSED FRUSTARATION WITH NPO STATUS AND STATED "THIS IS THE WORST CARE THEY HAVE EVER RECIEVED." PT WITNESSED BY RN TRYING TO DRINK FLUIDS A COUPLE TIMES T/O SHIFT, DESPITE BEING NPO. EDUCATED PT THAT NPO WAS FOR HIS SAFETY DURING PROCEDURE. PT EVENTAULLY CALMED DOWN AND AGREED WITH PLAN. CARDIOLOGY CALLED, UNABLE TO COMPLETE MADONNA/CARDIOVERSION THIS SHIFT. PLAN FOR PROCEDURE IN THE AM. HEART HEALTHY DIET ORDERED FOR PT. PT TO BE NPO AT MIDNIGHT AND COMPLETE PROCEDURE IN THE AM. PT DENIES QUESTIONS/CONCERNS AT THIS TIME WILL CONTINUE TO MONITOR AND REPORT TO SALES & SERVICE ASSOCIATE RN.
[2024-02-21] MEDS ORDERED: Warfarin Sodium 5 MG Tab PO ONE (18:00)
[2024-02-21] MEDS ORDERED: Acetaminophen 325 MG TABLET PO PRN (22:30)
[2024-02-21] MEDS ORDERED: Lidocaine 4% 1 Patch TOP SCH (23:00)
[2024-02-22] VITALS (25 sets, daily range): BP systolic 68–134; BP diastolic 48–102
[2024-02-22 04:38] LABS: International Normalized Ratio 3.56; Prothrombin Time Results 34.7 Sec (9.7-11.5)
[2024-02-22] MEDS ORDERED: NS 0 ML IV ONE (06:32)
--- NOTE | 2024-02-22 06:57 | NUR ---
UPDATE HEART CENTER ATTEMPTED TO BRING PATIENT BACK FOR MADONNA/CARDIOVERSION. THIS RN CONTACTED HEART CENTER NURSE REGARDING PATIENT'S NPO STATUS. NO ORDER FOR PATIENT TO BE NPO AT 0000, PER REPORT GIVEN BY DAY SHIFT RN PATIENT WAS SUPPOSED TO BE NPO AT 1200 12/5 FOR AFTERNOON PROCEDURE. PATIENT WAS WITNESSED TAKING A BITE OF ICE CREAM HEART CENTER NURSE WAS PICKING PATIENT UP FOR PROCEDURE. THIS RN CONCERNED FOR PATIENT'S SAFETY D/T NON-NPO STATUS. PATIENT YELLING AT THIS RN. DEAN OF BOYS MADE AWARE AND AT BEDSIDE SPEAKING WITH PATIENT.
[2024-02-22] MEDS ORDERED: Furosemide 10 MG/ML 10ML Vial IV SCH (09:00)
[2024-02-22] MEDS ORDERED: Furosemide 20 MG Tab PO SCH (09:00)
[2024-02-22] MEDS ORDERED: NS 1,000 ML IV ONE (13:08)
[2024-02-22] MEDS ORDERED: Benzocaine Oral Spray 0.5ML UD ONE (13:09)
--- NOTE | 2024-02-22 14:13 | NUR ---
1322: to for pt identification. anesthesiologist and dr holder at bedside. 1325: duglas probe in. 1330: duglas probe out. cardioversion successful. pt in sinus rhythm. 1410: procedural report given to zaida zarco. further questions denied.
--- NOTE | 2024-02-22 14:21 | NUR ---
anesthesia record in chart.
--- NOTE | 2024-02-22 18:57 | NUR ---
PT LEFT FOR MADONNA/CARDIOVERSION. PT RETURNED TO PCU VIA WHEELCHAIR. PT TRANSFERED FROM WHEELCHAIR TO BED. BP SOFT IN THE 90'S, SEQUENCE VITALS SET UP. HR IN THE 70'S, SINUS RHYTHM. O2 >92% ON 3L VIA NC. WILL CONTINUE MONITORING PTS VITALS.
--- NOTE | 2024-02-22 19:08 | NUR ---
SHIFT SUMMARY PT A&O X4, PT FRUSTRATED AT START OF SHIFT DUE TO NOT GETTING CARDIOVERSION PLANNED. MAINTENANCE SERVICE SUPERVISOR WAS ABLE TO TALK TO HEART CENTER, PT KEPT NPO AND WAS ABLE TO GET CARDIOVERSION THIS AFTERNOON. PT COMPLETED CARDIOVERSION, ONCE RETURNED TO PCU PT HAS BEEN IN SINUS RHYTHM IN THE 70'S, DENIES CP/PRESSURE, NUMB/TINGLING, SBP SOFT IN THE 90'S, PT ASYMPTOMATIC, RECHECKED BLOOD PRESSURE AND IMPROVED, MAP >65. PT ALTERNATING BETWEEN 2L VIA NC AND CPAP ON THE V60. PT DESATED TO THE 60'S WHILE ON NC, PT WAS PUT ON CPAP AND RECOVERED QUICKLLY BACK TO THE 90'S. SINCE RETURNING PT HAS AN OCCASIONAL COUGH. HE ALSO C/O CRAMPS AND REQUESTED MUSTARD PACKETS, CRAMPS RESOLVED. PT SITTING IN RECLINER WITH NC AT 2L. REPORT GIVEN TO COMMERCIAL LINES MANAGER RN.
[2024-02-23] VITALS (7 sets, daily range): BP systolic 101–125; BP diastolic 69–102
--- NOTE | 2024-02-23 05:35 | NUR ---
SHIFT SUMMARY PATIENT ALERT AND ORIENTED X4. MEDICATED PER EMAR FOR BACK PAIN. HE HAS HAD NO COMPLAINTS OF CHEST PAIN OR DIZZINESS. VITAL SIGNS STABLE. WAS SINUS RHYTHM ON TELE OVERNIGHT. PATIENT IS DYSPNIC ON EXERTION AND TACHYPNIC AT REST, ON 2 LITERS O2 VIA NC WHILE AWAKE AND BIPAP WHILE SLEEPING. NO ACUTE ISSUES NOTED OVERNIGHT. WILL CONTINUE TO MONITOR. CALL LIGHT WITHIN REACH.
[2024-02-23 05:54] LABS: BASOPHILS ABSOLUTE AUTO 0.03 K/mm3 (0.00-0.23); BASOPHILS PERCENT AUTO 0 % (0-2); EOSINOPHILS ABSOLUTE AUTO 0.02 K/mm3 (0.00-0.68); EOSINOPHILS PERCENT AUTO 0 % (0-6); Hematocrit 29.9 % (37.0-53.0); Hemoglobin 8.6 g/dL (13.5-17.5); IMMATURE GRAN ABSOLUTE AUTO 0.04 K/mm3 (0.00-0.10); IMMATURE GRAN PERCENT AUTO 1 % (0-1); LYMPHOCYTES ABSOLUTE AUTO 0.66 K/mm3 (0.84-5.20); LYMPHOCYTES PERCENT AUTO 8 % (21-46); MONOCYTES ABSOLUTE AUTO 0.79 K/mm3 (0.16-1.47); MONOCYTES PERCENT AUTO 9 % (4-13); Mean Corpuscular HGB 21.8 pg (26.0-34.0); Mean Corpuscular HGB Conc 28.8 g/dL (31.5-36.5); Mean Corpuscular Volume 76 fL (80-100); Mean Platelet Volume 10.5 fL (9.1-12.4); NEUTROPHILS ABSOLUTE AUTO 6.97 K/mm3 (1.96-9.15); NEUTROPHILS PERCENT AUTO 82 % (41-73); Platelet Count 274 K/mm3 (150-400); RDW Coefficient Variation 18.3 % (11.7-14.2); RDW Standard Deviation 49.6 fL (35.1-46.3); Red Blood Cell Count 3.94 M/mm3 (4.30-5.90); White Blood Cell Count 8.51 K/mm3 (4.00-11.30)
[2024-02-23 06:16] LABS: Albumin, Blood 3.1 g/dL (3.4-5.0); Bilirubin, Total 1.1 mg/dL (0.1-1.0); Calcium, Blood 8.7 mg/dL (8.5-10.1); Creatinine, Blood 1.68 mg/dL (0.60-1.20); Globulin, Blood 3.1 g/dL (2.2-4.0); Magnesium, Blood 2.1 mg/dL (1.6-2.4); Phosphorus, Blood 3.8 mg/dL (2.5-4.9); Total Protein, Blood 6.2 g/dL (6.4-8.2)
[2024-02-23 06:55] LABS: Prothrombin Time Results 43.2 Sec (9.7-11.5)
[2024-02-23 07:03] LABS: International Normalized Ratio 4.51
[2024-02-23] MEDS ORDERED: Furosemide 10 MG/ML 10ML Vial IV ONE (08:30)
[2024-02-23] MEDS ORDERED: NS IV ONE (08:40)
[2024-02-23] MEDS ORDERED: FUROSEMIDE IV ONE (08:40)
[2024-02-23] MEDS ORDERED: Metolazone 2.5 MG Tab PO SCH (09:00)
--- NOTE | 2024-02-23 13:00 | NUR ---
PT TIP PUNCHER LIGHT REQUESTING FLUIDS. I&O ASSESSED IT WAS NOTED THAT PT HAS HAD AN INTAKE OF 630ML OF THIS TIME, PT IS EDUCATED THAT HE HAS 170ML LEFT FOR THIS SHIFT. HE WAS PROVIDED WITH 30ML OF WATER TO WET MOUTH AND ORAL SPONGE PT STS THAT THIS WILL NOT BE ENOUGH THAT HE WILL NEED DRINK AT BEDSIDE IF HE IS GOING TO WEAR HIS BIPAP, PT BEGINS ARGUING STATING THAT HE HAS ONLY HAD ONE MILK THIS SHIFT THAT DOCUMENTATION IS WRONG. HE REPORTS THAT HE WILL NOT WEAR BIPAP HE DOES NOT HAVE ENOUGH FLUIDS TO WEAR HIS BIPAP. EDUCATION WAS NOT SUCCESSFUL.
[2024-02-23 13:58] LABS: Albumin, Blood 3.2 g/dL (3.4-5.0); Albumin/Globulin Ratio 0.9 (0.8-1.8); Bun/Creatinine Ratio 27.2 (12.0-20.0); Calcium, Blood 8.9 mg/dL (8.5-10.1); Creatinine, Blood 1.58 mg/dL (0.60-1.20); Globulin, Blood 3.4 g/dL (2.2-4.0); Potassium, Blood 3.5 mmol/L (3.5-5.5); Total Protein, Blood 6.6 g/dL (6.4-8.2)
--- NOTE | 2024-02-23 15:44 | NUR ---
MET WITH PT AND HIS MOTHER PER DR. MEYER REQUEST. PATIENT LIKES TO BE ADDRESSED "BRANDON". ECHO TODAY 02/23/24 SHOWS EF HAS DECREASED TO 30-35% FROM 55% ON 08/29. FLUID OVERLOADED, NONCOMPLIANT WITH FLUID RESTRICTION AND SODIUM INTAKE. PRIMARY RN REPORTS PT'S FRIEND BROUGHT IN PICKLE JUICE FOR PT. LIVER ENZYMES, INCREASED. BRANDON REPORTS DRINKING 2 GAMINO'S ON . HOWEVER, HE DENIES ETOH. DURING THIS VISIT, BRANDON ADMITTED TO METHAMPHETAMINE USE, "JUST A LITTLE BIT A DAY". DISCUSSED RECREATIONAL DRUG USE AND HIS HEART FAILURE. LIDYA ENTERED ROOM FOR ASSESSMENT DURING THIS VISIT.
--- NOTE | 2024-02-23 17:12 | NUR ---
SHIFT SUMMARY PT A&Ox4, CALLS AND COMMUNICATES NEEDS APPROPRIATELY. IRRITABLE AT TIMES. NONCOMPLIANT WITH FLUID RESTRICTION, THIS RN CAUGHT PT DRINKING PICKLE JUICE OUT OF JAR. BP STABLE, SINUS 70's, DENIES CP/PRESSURE. SpO2> 92% RA-2L VIA NC WHILE AWAKE. REQUIRING CPAP WHILE ASLEEP, WILL DESATURATE TO 50's WITHOUT IT. IND IN ROOM. CONTINENT OF URINE, USING URINAL APPROPRIATELY. PT C/O CRAMPS IN ARMS AND LEGS. NO OTHER EVENTS, WILL REPORT TO ONCOMING RN.
[2024-02-24] VITALS (8 sets, daily range): BP systolic 96–137; BP diastolic 72–120
--- NOTE | 2024-02-24 06:02 | NUR ---
SHIFT SUMMARY PATIENT ALERT AND ORINTED X4. ARGUMENTED WITH STAFF REGARDING HIS FLUID RESTRICTION, STAFF ATTEMPTED TO EDUCATED PATIENT ON THE IMPORTANCE OF ADHERING TO IT AND PATIENT CONTINUED TO INSIST HE NEEDED SOMETHING TO DRINK. PATIENT COMPLAINED OF BACK PAIN OVERNIGHT, ICE PACKS APPLIED TO THE SORE AREAS. VITAL SIGNS STABLE, SINUS RHYTHM ON TELE. ON ROOM AIR - 2 LITERS O2 VIA NC WHILE AWAKE. PATIENT CONTINUES TO REQUIRE BIPAP WITH SLEEP. WILL CONTINUE TO MONITOR.CALL LIGHT WITHIN REACH.
[2024-02-24 06:21] LABS: International Normalized Ratio 2.77; Prothrombin Time Results 27.5 Sec (9.7-11.5)
[2024-02-24 07:49] LABS: BASOPHILS ABSOLUTE AUTO 0.03 K/mm3 (0.00-0.23); BASOPHILS PERCENT AUTO 0 % (0-2); EOSINOPHILS ABSOLUTE AUTO 0.05 K/mm3 (0.00-0.68); EOSINOPHILS PERCENT AUTO 1 % (0-6); Hematocrit 31.9 % (37.0-53.0); Hemoglobin 8.9 g/dL (13.5-17.5); IMMATURE GRAN ABSOLUTE AUTO 0.03 K/mm3 (0.00-0.10); IMMATURE GRAN PERCENT AUTO 0 % (0-1); LYMPHOCYTES ABSOLUTE AUTO 0.81 K/mm3 (0.84-5.20); LYMPHOCYTES PERCENT AUTO 12 % (21-46); MONOCYTES ABSOLUTE AUTO 0.56 K/mm3 (0.16-1.47); MONOCYTES PERCENT AUTO 8 % (4-13); Mean Corpuscular HGB 21.8 pg (26.0-34.0); Mean Corpuscular HGB Conc 27.9 g/dL (31.5-36.5); Mean Corpuscular Volume 78 fL (80-100); Mean Platelet Volume 10.7 fL (9.1-12.4); NEUTROPHILS ABSOLUTE AUTO 5.44 K/mm3 (1.96-9.15); NEUTROPHILS PERCENT AUTO 79 % (41-73); NRBC ABSOLUTE 0.02 K/mm3 (0.00-0.02); NRBC Auto 0.3 /100 WBC (0.0-0.2); Platelet Count 292 K/mm3 (150-400); RDW Coefficient Variation 18.3 % (11.7-14.2); RDW Standard Deviation 51.1 fL (35.1-46.3); Red Blood Cell Count 4.09 M/mm3 (4.30-5.90); White Blood Cell Count 6.92 K/mm3 (4.00-11.30)
[2024-02-24] MEDS ORDERED: Carvedilol 25 MG Tab PO SCH (08:00)
[2024-02-24 08:01] LABS: Albumin, Blood 3.2 g/dL (3.4-5.0); Albumin/Globulin Ratio 0.9 (0.8-1.8); Bilirubin, Total 0.8 mg/dL (0.1-1.0); Bun/Creatinine Ratio 26.5 (12.0-20.0); Calcium, Blood 9.1 mg/dL (8.5-10.1); Creatinine, Blood 1.47 mg/dL (0.60-1.20); Globulin, Blood 3.7 g/dL (2.2-4.0); Potassium, Blood 3.4 mmol/L (3.5-5.5); Total Protein, Blood 6.9 g/dL (6.4-8.2)
[2024-02-24] MEDS ORDERED: Potassium Chloride 20 MEQ TabCR PO ONE (09:00)
[2024-02-24] MEDS ORDERED: Bumetanide 0.25 MG/ML 4ML ViaL IV SCH (09:00)
[2024-02-24] MEDS ORDERED: Methyl Salicylate/Menth/Camph 57 GM TUBE TOP PRN (13:15)
[2024-02-24] MEDS ORDERED: Warfarin Sodium 5 MG Tab PO SCH (18:00)
--- NOTE | 2024-02-24 18:15 | NUR ---
SHIFT SUMMARY PT A&Ox4, CALLS AND COMMUNICATES NEEDS APPROPRIATELY. IRRITABLE AT TIMES, AND VERY MANIPULATIVE WITH STAFF. PT SCREAMING/YELLING OUT IN PAIN SECONDARY TO CRAMPS, STATING THAT HE NEEDED WATER OR PICKLE JUICE FOR THEM TO GO AWAY. PT DID THIS EVERY TIME HE REQUESTED FLUIDS AND STAFF TOLD HIM THAT HE HIS FLUIDS WERE LIMITED AN HE HAD ALREADY DRANK A LOT OF HIS ALLOWED FLUIDS FOR THE DAY. BP STABLE, SINUS 70's, DENIES CP/PRESSURE. SBP LOW 100's PRIOR TO 1800 DOSE OF BUMEX, NOTIFIED PROVIDER AND INSTRUCTED TO HOLD DOSE AND HE WILL REEVALUATE IN THE MORNING. SpO2> 92% RA-2L VIA NC WHILE AWAKE. REQUIRING CPAP WHILE ASLEEP, WILL DESATURATE TO 50's WITHOUT IT. IND IN ROOM. CONTINENT OF URINE, USING URINAL APPROPRIATELY. NO OTHER EVENTS, WILL REPORT TO ONCOMING RN.
--- NOTE | 2024-02-24 23:47 | NUR ---
PT DESATTING, REFUSING BIPAP- PER PATIENT DUE TO DRY TONGUE. PT OFFERED MOUTH MOISTURIZER AND CHAPSTICK. PT EDUCATED ON IMPORTANCE OF FLUID RESTRICTION, RESPIRATORY STATUS AND CARDIAC STRESS. PT GETTING ANGRY ON ACCOUNTS OF FLUID RESTRICTION AND VERBALIZES THEY UNDERSTAND THE CARDIAC AND RESPIRATORY RISK. PT STATES THEY WILL GET WATER FROM THE SINK. RN LEFT MOUTH MOISTURIZER AND CHAPSTICK AT BEDSIDE FOR PATIENT.
[2024-02-25] VITALS (7 sets, daily range): BP systolic 102–126; BP diastolic 74–94
[2024-02-25 04:44] LABS: BASOPHILS ABSOLUTE AUTO 0.02 K/mm3 (0.00-0.23); BASOPHILS PERCENT AUTO 0 % (0-2); EOSINOPHILS ABSOLUTE AUTO 0.08 K/mm3 (0.00-0.68); EOSINOPHILS PERCENT AUTO 1 % (0-6); Hematocrit 31.3 % (37.0-53.0); Hemoglobin 8.8 g/dL (13.5-17.5); IMMATURE GRAN ABSOLUTE AUTO 0.03 K/mm3 (0.00-0.10); IMMATURE GRAN PERCENT AUTO 1 % (0-1); LYMPHOCYTES ABSOLUTE AUTO 0.85 K/mm3 (0.84-5.20); LYMPHOCYTES PERCENT AUTO 13 % (21-46); MONOCYTES ABSOLUTE AUTO 0.62 K/mm3 (0.16-1.47); MONOCYTES PERCENT AUTO 10 % (4-13); Mean Corpuscular HGB 21.8 pg (26.0-34.0); Mean Corpuscular HGB Conc 28.1 g/dL (31.5-36.5); Mean Corpuscular Volume 78 fL (80-100); Mean Platelet Volume 10.6 fL (9.1-12.4); NEUTROPHILS ABSOLUTE AUTO 4.78 K/mm3 (1.96-9.15); NEUTROPHILS PERCENT AUTO 75 % (41-73); Platelet Count 307 K/mm3 (150-400); RDW Coefficient Variation 18.1 % (11.7-14.2); RDW Standard Deviation 50.7 fL (35.1-46.3); Red Blood Cell Count 4.03 M/mm3 (4.30-5.90); White Blood Cell Count 6.38 K/mm3 (4.00-11.30)
[2024-02-25 05:06] LABS: International Normalized Ratio 2.02; Prothrombin Time Results 20.5 Sec (9.7-11.5)
[2024-02-25 05:19] LABS: Albumin, Blood 3.3 g/dL (3.4-5.0); Albumin/Globulin Ratio 0.9 (0.8-1.8); Bilirubin, Total 0.8 mg/dL (0.1-1.0); Bun/Creatinine Ratio 24.4 (12.0-20.0); Calcium, Blood 9.6 mg/dL (8.5-10.1); Creatinine, Blood 1.35 mg/dL (0.60-1.20); Globulin, Blood 3.7 g/dL (2.2-4.0); Potassium, Blood 3.6 mmol/L (3.5-5.5)
--- NOTE | 2024-02-25 06:49 | NUR ---
SHIFT SUMMARY PT'S SATURATIONS STABILIZED AFTER WEARING THE CPAP. NO OTHER ACUTE CHANGES THIS SHIFT.
[2024-02-25] MEDS ORDERED: Vitamin B Complex 1 EA Softgel PO SCH (09:00)
[2024-02-25] MEDS ORDERED: Lisinopril 5 MG Tab PO SCH (11:21)
[2024-02-25] MEDS ORDERED: Bumetanide 0.25 MG/ML 10ML Vial IV ONE (15:30)
--- NOTE | 2024-02-25 17:11 | NUR ---
END OF SHIFT NOTE: NO ACUTE EVENTS THIS SHIFT. PT A/OX4, ABLE TO CALL APPROPRIATELY & COMMUNICATE NEEDS. LABILE MOOD T/O THE DAY, PT CONTINUES TO VOICE FRUSTRATION OVER FLUID RESTRICTION IN PLACE THIS AM. VSS. HR 70-80'S, SINUS RHYTHM ON TELE. SBP 100-120'S, DENIES CHEST PAIN/PRESSURE. SPO2 >90% ON RA WHILE AWAKE, REQUIRING 2L WHILE SLEEPING TO MAINTAIN SATS. AFEBRILE. FLUID RESTRICTION REMOVED THIS SHIFT PER MD ORDERS. AT TIME OF THIS NOTE, 3925ML URINE OUTPUT THIS SHIFT. SHOWER COMPLETED THIS AFTERNOON. PT INDEPENDENT W/ ADL'S IN ROOM. NO C/O PAIN OR CRAMPING THIS SHIFT. NO OTHER NEEDS AT THIS TIME, SITTING UP IN CHAIR AWAITING DINNER. CALL LIGHT IN REACH.
[2024-02-25] MEDS ORDERED: Warfarin Sodium 5 MG Tab PO SCH (18:00)
--- NOTE | 2024-02-25 18:05 | NUR ---
PHYSICIAN CONTACT: PT REQUESTING SLEEP AID FOR TONIGHT. CALL PLACED TO MD RAI. TO PLACE ORDERS FOR AMBIEN. SEE EMAR.
[2024-02-25] MEDS ORDERED: Zolpidem Tartrate 10 MG Tab PO PRN (18:10)
[2024-02-25 22:17] LABS: Albumin, Blood 3.4 g/dL (3.4-5.0); Anion Gap 10 mmol/L (3-11); Blood Urea Nitrogen 35 mg/dL (8-24); Bun/Creatinine Ratio 24.6 (12.0-20.0); CO2, Blood 36 mmol/L (21-32); Calcium, Blood 9.1 mg/dL (8.5-10.1); Chloride, Blood 89 mmol/L (98-108); Creatinine, Blood 1.42 mg/dL (0.60-1.20); Glomerular Filtration Rate 59 (60-); Glucose, Blood 148 mg/dL (70-99); Phosphorus, Blood 3.5 mg/dL (2.5-4.9); Potassium, Blood 3.4 mmol/L (3.5-5.5); Sodium, Blood 132 mmol/L (136-145)
[2024-02-25] MEDS ORDERED: Potassium Chloride 20 MEQ TabCR PO ONE (23:00)
[2024-02-26 04:48] VITALS: BP 101/73
[2024-02-26 05:19] LABS: BASOPHILS ABSOLUTE AUTO 0.02 K/mm3 (0.00-0.23); BASOPHILS PERCENT AUTO 0 % (0-2); EOSINOPHILS ABSOLUTE AUTO 0.07 K/mm3 (0.00-0.68); EOSINOPHILS PERCENT AUTO 1 % (0-6); Hematocrit 30.7 % (37.0-53.0); Hemoglobin 8.9 g/dL (13.5-17.5); IMMATURE GRAN ABSOLUTE AUTO 0.02 K/mm3 (0.00-0.10); IMMATURE GRAN PERCENT AUTO 0 % (0-1); LYMPHOCYTES ABSOLUTE AUTO 0.68 K/mm3 (0.84-5.20); LYMPHOCYTES PERCENT AUTO 11 % (21-46); MONOCYTES ABSOLUTE AUTO 0.62 K/mm3 (0.16-1.47); MONOCYTES PERCENT AUTO 10 % (4-13); Mean Corpuscular HGB 21.8 pg (26.0-34.0); Mean Corpuscular Volume 75 fL (80-100); Mean Platelet Volume 10.2 fL (9.1-12.4); NEUTROPHILS ABSOLUTE AUTO 5.03 K/mm3 (1.96-9.15); NEUTROPHILS PERCENT AUTO 78 % (41-73); Platelet Count 322 K/mm3 (150-400); RDW Coefficient Variation 17.8 % (11.7-14.2); RDW Standard Deviation 47.9 fL (35.1-46.3); Red Blood Cell Count 4.08 M/mm3 (4.30-5.90); White Blood Cell Count 6.44 K/mm3 (4.00-11.30)
--- NOTE | 2024-02-26 05:46 | NUR ---
SHIFT SUMMARY PT COMPLIANT WITH CPAP TONIGHT WITH NO DESATURATIONS. PT DRANK APROXIMATELY 1L THIS SHIFT. C/O DIFFUSE BODY ACHES AND JOINT PAIN. FOUND TO HAVE A POTASSIUM OF 3.4 THAT WAS REPLACED WITH 40MEQ'S. NO OTHER CHANGES AT THIS TIME.
[2024-02-26 05:59] LABS: Albumin, Blood 3.3 g/dL (3.4-5.0); Albumin/Globulin Ratio 0.9 (0.8-1.8); Bun/Creatinine Ratio 26.6 (12.0-20.0); Calcium, Blood 9.1 mg/dL (8.5-10.1); Creatinine, Blood 1.24 mg/dL (0.60-1.20); Globulin, Blood 3.8 g/dL (2.2-4.0); Potassium, Blood 3.8 mmol/L (3.5-5.5); Total Protein, Blood 7.1 g/dL (6.4-8.2)
[2024-02-26 06:31] LABS: International Normalized Ratio 2.07
[2024-02-26 08:07] VITALS: BP 140/88
[2024-02-26] MEDS ORDERED: Bumetanide 0.25 MG/ML 4ML ViaL IV SCH (09:00)
[2024-02-26 10:30] LABS: HEPATITIS A ANTIBODY, IGM Negative (Negative); HEPATITIS B CORE ANTIBODY, IGM Negative (Negative); HEPATITIS B SURFACE ANTIGEN Negative (Negative); HEPATITIS C AB CIA INTERP Negative (Negative); HEPATITIS C ANTIBODY CIA INDEX 0.12 IV
[2024-02-26] MEDS ORDERED: Lisinopril2.5 MG PO (10:35)
[2024-02-26] MEDS ORDERED: METO2.5 PO (10:36)
[2024-02-26] MEDS ORDERED: Vitamin B Comple1 EA PO (10:37)
--- NOTE | 2024-02-26 11:22 | NUR ---
DISCHARGE EDUCATION this rn went over discharge education, to follow up with pcp, dose increase and new medications. patient verbalized understanding. pateint awaiting ride.
[2024-02-26] MEDS ORDERED: Warfarin Sodium 5 MG Tab PO SCH (18:00)
== END 2024-02-26 11:38 | disposition home or self-care (01) | DRG 280 ==
LOC: ER 00:13 → PCU 04:46 → ERHOLD 04:46 → PCU 08:12
PROVIDERS: Family Medicine; Internal Medicine Cardiovascular Disease; Student in an Organized Health Care Education/Training Program; ADMIT Student in an Organized Health Care Education/Training Program
PROC: 5A2204Z Restoration of Cardiac Rhythm, Single (ICD-10-PCS; principal; 2024-02-22)
PROC: B245ZZ4 Ultrasonography of Left Heart, Transesophageal (ICD-10-PCS; 2024-02-22)
DX: I48.0 Paroxysmal atrial fibrillation (principal); I50.43 Acute on chronic combined systolic (congestive) and diastolic (congestive) heart failure; I21.A1 Myocardial infarction type 2; J96.01 Acute respiratory failure with hypoxia; I13.0 Hypertensive heart and chronic kidney disease with heart failure and stage 1 through stage 4 chronic kidney disease, or unspecified chronic kidney disease; N17.9 Acute kidney failure, unspecified; Z68.42 Body mass index [BMI] 45.0-49.9, adult; I48.92 Unspecified atrial flutter; E66.9 Obesity, unspecified; D64.9 Anemia, unspecified; F15.10 Other stimulant abuse, uncomplicated; E78.5 Hyperlipidemia, unspecified; R73.9 Hyperglycemia, unspecified; N18.30 Chronic kidney disease, stage 3 unspecified; G47.33 Obstructive sleep apnea (adult) (pediatric); K76.1 Chronic passive congestion of liver; R79.1 Abnormal coagulation profile; K76.89 Other specified diseases of liver; Z95.828 Presence of other vascular implants and grafts; Z95.2 Presence of prosthetic heart valve; Z79.01 Long term (current) use of anticoagulants
CPT/HCPCS: 36415; 71046; 76705; 80053; 80069; 80074; 83690; 83735; 83880; 84100; 84484; 85025; 85610; 85730; 92960; 93005; 93010; 93312; 93325; 94660; 94762; 96374; 99285-25; A9270; C8929; G0378; G0480; J1940; J2371; J2405; J2704; J7030; Q9957